=== PATIENT | female | born 1945 | race Hispanic/Latino ===

== ENCOUNTER 2017-07-16 08:44 | Inpatient (IN) | payer OTHER ==
[2017-07-16 09:11] VITALS: BMI 31.1
--- NOTE | 2017-07-16 09:21 | ED PDOC ---
Arrival/HPI - General Chief Complaint: Abdominal Pain Time Seen by Provider: 07/16/17 09:18 Historian: Patient - History of Present Illness Narrative History of Present Illness (Text): 07/16/17 09:21 72 y/o female, pmh and surgical history including appendectomy/cholecystomy/ colitis, nkda, c/o rt. sided abdominal pain with diarrhea x 1 year. Pt. stated that she has rt. sided abdominal pain for 1 week which associated with diarrhea (no previous antibiotic exposure prior to the initial episode), seen at [facility] ER last week which she was discharge home as she had negative finding on the CT abdomen/pelvis as per patient. Pt. follow up with her pcp Dr. Monty Ordoñez on last week wednesday which she's been taking flagyl po for the past 1 week with limited relief, pain and diarrhea still persist which prompted her to come to the ER department. Pt. doesn't recall any fever or chills, no exposure to c.diff, no palpitation, no chest pain, no other medical or psychological complaints. Past Medical History - Provider Review Nursing Documentation Reviewed: Yes - Infectious Disease Hx of Infectious Diseases: None - Past Medical History Past Medical History: No Previous - Cardiac Hx Cardiac Disorders: No Hx [place]: No Hx Hypertension: No Hx Pacemaker: No Other/Comment: H/O CHEST DISCOMFORT, POSSIBLE GI REL., PER PT. STRESS TEST NEGATIVE. - Pulmonary Hx Respiratory Disorders: No Hx Asthma: No Hx Chronic Obstructive Pulmonary Disease (COPD): No Hx Emphysema: No - Neurological Hx Neurological Disorder: No HX Cerebrovascular Accident: No Hx Dementia: No Hx Paralysis: No Hx Seizures: No Hx Transient Ischemic Attacks (TIA): No - HEENT Hx HEENT Disorder: Yes (using reading glasses) - Renal Hx Renal Disorder: No Hx Kidney Stones: Yes - Endocrine/Metabolic Hx Endocrine Disorders: No - Hematological/Oncological Hx Blood Disorders: No Hx Blood Transfusions: No Hx Blood Transfusion Reaction: No Hx Cancer: No - Integumentary Hx Dermatological Disorder: No - Musculoskeletal/Rheumatological Hx Musculoskeletal Disorders: Yes Hx Back Pain: Yes Hx Falls: No Hx Fractures: No - Gastrointestinal Hx Gastrointestinal Disorders: Yes Hx Colitis: Yes Hx Gall Bladder Disease: Yes (gall bladder stones removed) Hx Gastroesophageal Reflux: Yes Other/Comment: RECENT CT SCAN SHOWS MILD SPLENOMEGALY - Psychiatric Hx Psychophysiologic Disorder: Yes Hx Anxiety: Yes Hx Depression: Yes Hx Emotional Abuse: No Hx Physical Abuse: No Hx Substance Use: No - Surgical History Hx Appendectomy: Yes Hx Cholecystectomy: Yes - Anesthesia Hx Anesthesia: Yes Hx Anesthesia Reactions: Yes (VOMITING) Hx Malignant Hyperthermia: No - Suicidal Assessment Feels Threatened In Home Enviroment: No Family/Social History - Physician Review Nursing Documentation Reviewed: Yes Family/Social History: Unknown Family HX Smoking Status: Never Smoked Hx Alcohol Use: No Hx Substance Use: No Hx Substance Use Treatment: No Allergies/Home Meds Allergies/Adverse Reactions: Allergies No Known Allergies Allergy (Verified 07/16/17 09:05) Home Medications: Home Meds Medication Instructions Recorded Confirmed ALPRAZolam HALF TABLET [Xanax] 1 tab PO PRN PRN 03/09/16 08/03/16 Zolpidem [Ambien] 5 mg PO HS 03/09/16 08/03/16 Acetaminophen [Tylenol Extra 2 tab PO Q8 PRN 08/03/16 08/03/16 Strength] Rpejn-Y-Idatncljzvmib [Beano] 2 tab PO DAILY 08/03/16 08/03/16 Bisacodyl [Dulcolax] 5 mg PO HS PRN 08/03/16 08/03/16 Dicyclomine [Bentyl] 10 mg PO Q6 PRN 08/03/16 08/03/16 Review of Systems - Review of Systems Constitutional: absent: Fatigue, Fevers Eyes: absent: Vision Changes ENT: absent: Hearing Changes Respiratory: absent: SOB, Cough Cardiovascular: absent: Chest Pain Gastrointestinal: Abdominal Pain, Diarrhea. absent: Nausea, Vomiting Musculoskeletal: absent: Arthralgias, Back Pain Skin: absent: Rash, Pruritis Neurological: absent: Headache Psychiatric: absent: Anxiety, Depression Physical Exam Vital Signs Reviewed: Yes Vital Signs Temp Pulse Resp BP Pulse Ox 07/16/17 12:50 84 18 145/64 96 07/16/17 11:20 89 18 148/69 96 07/16/17 10:19 92 H 18 154/68 H 96 07/16/17 09:06 98.1 F 97 H 18 154/82 H 99 Temperature: Afebrile Blood Pressure: Normal Pulse: Regular Respiratory Rate: Normal Appearance: Positive for: Uncomfortable Pain Distress: Moderate Mental Status: Positive for: Alert and Oriented X 3 - Systems Exam Head: Present: Atraumatic, Normocephalic Pupils: Present: PERRL Extroacular Muscles: Present: EOMI Conjunctiva: Present: Normal Mouth: Present: Moist Mucous Membranes Neck: Present: Normal Range of Motion Respiratory/Chest: Present: Clear to Auscultation, Good Air Exchange. No: Respiratory Distress, Accessory Muscle Use Cardiovascular: Present: Regular Rate and Rhythm, Normal S1, S2. No: Murmurs Abdomen: Present: Tenderness (+rt. sided abdomen tenderness). No: Distention, Peritoneal Signs, Rebound, Guarding Back: Present: Normal Inspection Upper Extremity: Present: Normal Inspection. No: Cyanosis, Edema Lower Extremity: Present: Normal Inspection. No: Edema Neurological: Present: GCS=15, CN II-XII Intact, Speech Normal Skin: Present: Warm, Dry, Normal Color. No: Rashes Psychiatric: Present: Alert, Oriented x 3, Normal Insight, Normal Concentration Medical Decision Making ED Course and Treatment: 07/16/17 09:42 -labs/ua/C.diff and culture the stool -CT abdomen and pelvis -IVF/pepcid/zofran/morphine -Observe and reassess 07/16/17 13:42 -CT abdomen and pelvis show: Evaluation of the bowel is limited in the absence of oral contrast. Allowing for this, mild mural thickening in the cecum and ascending colon with mild pericolonic inflammatory changes may represent nonspecific infectious/ inflammatory colitis. Additionally fat deposit vila in the transverse and left hemicolon wall is most compatible with chronic inflammatory disease. -Labs show no acute findings except bun 23 (IVF infusing) -UA is pending -IV cipro and flagyl ordered, will need admission for inpatient management. 07/16/17 13:50 -I spoke to the pt.'s pmd Dr. Monty Ordoñez, discussed about the case/labs/ radiology result, agreed to admit the patient with Dr. Austin (ID) and Dr. Reinoso (GI) on routine consult consult, NPO for the patient at this time. -I spoke to Dr. Stark about the case, discussed about the case/labs/radiology result, agreed on the treatment and inpatient admission plan. He will put in the admission. -Pt. and the family agreed to be admitted - Lab Interpretations Lab Results: 07/16/17 09:50 07/16/17 09:50 Lab Results 07/16/17 09:50: WBC 4.0 L D, RBC 4.19, Hgb 12.2, Hct 37.7, MCV 90.0, MCH 29.1, MCHC 32.4, RDW 14.4, Plt Count 165, MPV 10.1, Gran % 60.6, Lymph % (Auto) 28.5, Navarro % (Auto) 8.1 H, Eos % (Auto) 2.5, Baso % (Auto) 0.3, Gran # 2.41, Lymph # ( Auto) 1.1 L, Navarro # (Auto) 0.3, Eos # (Auto) 0.1, Baso # (Auto) 0.01 07/16/17 09:50: Sodium 147, Potassium 3.6, Chloride 110 H, Carbon Dioxide 26, Anion Gap 15, BUN 23 H, Creatinine 0.9, Est GFR ( Amer) > 60, Est GFR ( Non-Af Amer) > 60, Random Glucose 156 H, Calcium 9.1, Magnesium 2.1, Total Bilirubin 0.2, AST 35, ALT 36, Alkaline Phosphatase 97, Total Protein 6.8, Albumin 4.1, Globulin 2.6, Albumin/Globulin Ratio 1.6, Lipase 82 I have reviewed the lab results: Yes - RAD Interpretation Radiology Orders: 07/16/17 09:35 ABD & PELVIS IV CONTRAST ONLY [CT] Stat LOWER THORAX: There is linear scarring in the lingula. The lung bases are clear. LIVER: Normal in size with homogeneous enhancement. GALLBLADDER AND BILE DUCTS: Surgically absent. Mild dilatation of the intrahepatic bile ducts and common bile duct is in keeping with postcholecystectomy status. PANCREAS: Normal in size with homogeneous enhancement. No gross lesion or ductal dilatation. SPLEEN: Normal in size and appearance. ADRENALS: No discrete nodule. KIDNEYS AND URETERS: Both kidneys are normal in size and there is homogeneous enhancement without hydronephrosis. There is a 3.0 cm simple cyst in the lower pole the right kidney. There is an extrarenal pelvis on the left. VASCULATURE: Early atherosclerotic aortoiliac calcifications. No aortic aneurysm. BOWEL: The small bowel loops are normal in caliber. There is mild circumferential mural thickening in the cecum and proximal ascending colon with mild pericolonic inflammatory changes. There is fat deposit vila in transverse and left hemicolon. There is moderate amount of stool in the colon. No bowel dilatation or obstruction APPENDIX: Surgically absent. PERITONEUM: No free fluid. No free air. LYMPH NODES: No enlarged lymph nodes. BLADDER: Normal in appearance. REPRODUCTIVE: The uterus is normal in size. BONES: No acute fracture. Within normal limits for the patient's age. OTHER FINDINGS: There is a small sliding hiatal hernia. IMPRESSION: 1. Evaluation of the bowel is limited in the absence of oral contrast. Allowing for this, mild mural thickening in the cecum and ascending colon with mild pericolonic inflammatory changes may represent nonspecific infectious/ inflammatory colitis. Additionally fat deposit vila in the transverse and left hemicolon wall is most compatible with chronic inflammatory disease. 2. Additional chronic findings as described above. Energy Management Specialist: Radiologist - Medication Orders Current Medication Orders: Sodium Chloride (Sodium Chloride 0.9%) 1,000 mls @ 100 mls/hr IV .Q10H HALLEY Last Admin: 07/16/17 09:58 Dose: 100 mls/hr eMAR Start Stop Document 07/16/17 09:58 GMD (Rec: 07/16/17 09:58 GMD [id number]) Intravenous Solution Start Date 07/16/17 Start Time 09:58 Ciprofloxacin (Cipro 400mg/200ml Dsw) 400 mg in 200 mls @ 133.3 mls/hr IVPB STAT STA PRN Reason: Protocol Stop: 07/16/17 15:15 Metronidazole (Flagyl) 500 mg in 100 mls @ 100 mls/hr IVPB STAT STA PRN Reason: Protocol Stop: 07/16/17 14:44 Discontinued Medications Famotidine (Pepcid) 20 mg IVP STAT STA Stop: 07/16/17 09:44 Last Admin: 07/16/17 09:59 Dose: 20 mg IVP Administration Document 07/16/17 09:59 GMD (Rec: 07/16/17 09:59 GMD [id number]) Charges for Administration # of IVP Administrations 1 Morphine Sulfate (Morphine) 4 mg IVP STAT STA Stop: 07/16/17 10:07 Last Admin: 07/16/17 10:11 Dose: 4 mg MAR Pain Assessment Document 07/16/17 10:11 GMD (Rec: 07/16/17 10:12 GMD [id number]) Pain Reassessment Is this a pain reassessment? No Presence of Pain Presence of Pain Yes IVP Administration Document 07/16/17 10:11 GMD (Rec: 07/16/17 10:12 GMD [id number]) Charges for Administration # of IVP Administrations 1 Ondansetron HCl (Zofran Inj) 4 mg IVP STAT STA Stop: 07/16/17 09:36 Last Admin: 07/16/17 09:59 Dose: 4 mg IVP Administration Document 07/16/17 09:59 GMD (Rec: 07/16/17 09:59 GMD [id number]) Charges for Administration # of IVP Administrations 1 - PA / CHIEF SOLUTION ARCHITECT / Resident Statement / has reviewed & agrees with the documentation as recorded. Disposition/Present on Arrival - Present on Arrival Any Indicators Present on Arrival: No History of DVT/PE: No History of Uncontrolled Diabetes: No Urinary Catheter: No History of Decub. Ulcer: No History Surgical Site Infection Following: None - Disposition Have Diagnosis and Disposition been Completed?: Yes Diagnosis: Colitis, Failure of outpatient treatment Disposition: HOSPITALIZED Disposition Time: 09:44 Patient Plan: Admission Patient Problems: Current Active Problems Problem Status Onset Colitis Acute Failure of outpatient treatment Acute Condition: STABLE Referrals: Monty Ordoñez DO [Primary Care Provider] - Follow up with primary Forms: [employer] (Slovenian)
[2017-07-16] MEDS ORDERED: Morphine 5 MG/ML SYRINGE IVP STA (09:35)
[2017-07-16] MEDS ORDERED: Sodium Chloride 0.9% 1,000 ML IV SCH (09:45)
[2017-07-16 10:02] LABS: BASO # 0.01 K/mm3 (0.0-2.0); BASO % 0.3 % (0.0-3.0); EOS # 0.1 (0.0-0.7); EOS % 2.5 % (1.5-5.0); GRAN # 2.41 (1.4-6.5); GRAN % 60.6 % (50.0-68.0); HEMOGLOBIN 12.2 g/dL (12.0-16.0); LYMPH # 1.1 (1.2-3.4); LYMPH % 28.5 % (22.0-35.0); MEAN CORPUSCULAR HEMOGLOBIN 29.1 pg (25.0-35.0); MEAN CORPUSCULAR HGB CONC 32.4 g/dl (31.0-37.0); MEAN PLATELET VOLUME 10.1 fl (7.0-11.0); MONO # 0.3 (0.1-0.6); MONO % 8.1 % (1.0-6.0); RBC 4.19 10^6/uL (3.5-6.1); RED CELL DISTRIBUTION WIDTH 14.4 % (11.5-14.5)
[2017-07-16] MEDS ORDERED: Morphine 4 mg/ml ISec IVP STA (10:06)
[2017-07-16] MEDS ORDERED: Iohexol 350 MG/100 ML VIAL ONE (10:44)
[2017-07-16 11:30] LABS: ALB/GLOB RATIO 1.6 (1.1-1.8); ALBUMIN 4.1 g/dL (3.0-4.8); ALT/SGPT 36 U/L (7-56); AST/SGOT 35 U/L (14-36); BLOOD UREA NITROGEN 23 mg/dL (7-21); CALCIUM 9.1 mg/dL (8.4-10.5); GFR AFRICAN-AMERICAN > 60; GFR NON-AFRICAN AMERICAN > 60; LIPASE 82 U/L (23-300)
--- NOTE | 2017-07-16 13:37 | CT ---
PROCEDURE: CT Abdomen and Pelvis with contrast HISTORY: Rt. abd pain,celia/append 7 years ago, c/o diarrhe COMPARISON: 07/17/2016. TECHNIQUE: Contrast dose: 100 mL Omnipaque 350 Radiation dose: Total exam DLP = mGy-cm. This CT exam was performed using one or more of the following dose reduction techniques: Automated exposure control, adjustment of the mA and/or kV according to patient size, and/or use of iterative reconstruction technique. FINDINGS: LOWER THORAX: There is linear scarring in the lingula. The lung bases are clear. LIVER: Normal in size with homogeneous enhancement. GALLBLADDER AND BILE DUCTS: Surgically absent. Mild dilatation of the intrahepatic bile ducts and common bile duct is in keeping with postcholecystectomy status. PANCREAS: Normal in size with homogeneous enhancement. No gross lesion or ductal dilatation. SPLEEN: Normal in size and appearance. ADRENALS: No discrete nodule. KIDNEYS AND URETERS: Both kidneys are normal in size and there is homogeneous enhancement without hydronephrosis. There is a 3.0 cm simple cyst in the lower pole the right kidney. There is an extrarenal pelvis on the left. VASCULATURE: Early atherosclerotic aortoiliac calcifications. No aortic aneurysm. BOWEL: The small bowel loops are normal in caliber. There is mild circumferential mural thickening in the cecum and proximal ascending colon with mild pericolonic inflammatory changes. There is fat deposit vila in transverse and left hemicolon. There is moderate amount of stool in the colon. No bowel dilatation or obstruction APPENDIX: Surgically absent. PERITONEUM: No free fluid. No free air. LYMPH NODES: No enlarged lymph nodes. BLADDER: Normal in appearance. REPRODUCTIVE: The uterus is normal in size. BONES: No acute fracture. Within normal limits for the patient's age. OTHER FINDINGS: There is a small sliding hiatal hernia. IMPRESSION: 1. Evaluation of the bowel is limited in the absence of oral contrast. Allowing for this, mild mural thickening in the cecum and ascending colon with mild pericolonic inflammatory changes may represent nonspecific infectious/ inflammatory colitis. Additionally fat deposit vila in the transverse and left hemicolon wall is most compatible with chronic inflammatory disease. 2. Additional chronic findings as described above.
[2017-07-16] MEDS ORDERED: Ciprofloxacin 400mg/200ml D5W 400 MG/200 ML BAG IVPB STA (13:45)
[2017-07-16] MEDS ORDERED: metroNIDAZOLE IV 500 mg/100 ml 500 MG/100 ML BAG IVPB STA (13:45)
[2017-07-16 14:22] LABS: URINE BILIRUBIN NEGATIVE (NEGATIVE); URINE BLOOD NEGATIVE (NEGATIVE); URINE GLUCOSE (UA) NEGATIVE (NEGATIVE); URINE LEUKOCYTE ESTERASE TRACE Leu/uL (NEGATIVE); URINE PROTEIN NEGATIVE mg/dL (<30 mg/dL); URINE UROBILINOGEN 0.2 E.U./dL (<1 E.U./dL)
[2017-07-16 14:35] LABS: URINE APPEARANCE CLEAR (CLEAR); URINE COLOR YELLOW (YELLOW)
[2017-07-16 14:40] LABS: URINE BACTERIA FEW (NEG); URINE RBC 0 - 2 /hpf (0-2)
[2017-07-16] MEDS ORDERED: Morphine 2 mg/ml ISec IVP PRN (16:50)
[2017-07-16] MEDS ORDERED: Morphine 4 mg/ml ISec IVP PRN (16:57)
[2017-07-16] MEDS ORDERED: Ciprofloxacin 400mg/200ml D5W 400 MG/200 ML BAG IVPB SCH (18:00)
[2017-07-16] MEDS: Sodium Chloride 0.9% 1,000 ML IV SCH (18:52)
[2017-07-16] MEDS: Insulin Reg-MEDIUM-Coverage SC SCH (21:26)
[2017-07-16] MEDS: metroNIDAZOLE IV 500 mg/100 ml 500 MG/100 ML BAG IVPB SCH (21:26)
[2017-07-16] MEDS: Vancomycin 25 MG/ML PO SCH (23:05)
--- NOTE | 2017-07-16 23:44 | HP ---
HISTORY OF PRESENT ILLNESS: I know Rox quite well from the office. She has been getting antibiotics for a colitis-type picture and she has been getting worse with diarrhea and abdominal pain. It got so bad, she came back to the emergency room. She is a 72-year-old female with a past medical history of colitis. She has had an appendectomy, cholecystectomy in the past. No known drug allergies. She has right-sided abdominal pain with diarrhea, on and off for a year. She has been treated on and off for colitis for a very long time. This past week was very bad with diarrhea. She was on antibiotics with Cipro and Flagyl from [facility], [place]. She had a CT scan now, which showing colitis, inflammatory bowel disease. She has had history of chest discomfort in the past with a negative stress test. She wears reading glasses. She has had colitis in the past, gallstones removed. She has had a splenomegaly with gastroesophageal reflux disease, anxiety, depression history, appendectomy, cholecystectomy. She has had some vomiting. FAMILY HISTORY: Unknown family history. SOCIAL HISTORY: Never smoked. No alcohol. No drugs. ALLERGIES: NO KNOWN DRUG ALLERGIES. MEDICATIONS: She has been on Xanax, Ambien, Tylenol extra strength, Beano, Colace, Cipro, Flagyl, Bentyl. REVIEW OF SYSTEMS: No acute vision or hearing changes. No sore throat. No shortness of breath or cough. No chest pain or palpitations. She is having abdominal pain, diarrhea, little nauseous. No vomiting. No back pain. No rashes. No skin issues. No anxiety or depression. No tremors. No headaches. PHYSICAL EXAMINATION: VITAL SIGNS: 98.1 temp, 97 pulse and 18 respiratory rate, 154/82 blood pressure, 99% O2 sat on room air. GENERAL: She is lying in bed. She is alert. She is uncomfortable. She is having right-sided abdominal pain, a little bit distress. She is alert and oriented x3. HEENT: Head is atraumatic, normocephalic. Extraocular muscles are intact. Pupils equal, reactive to light. Throat is moist. NECK: Supple. HEART: Regular rate. Normal S1 and S2. LUNGS: Decreased breath sounds, but clear to auscultation. ABDOMEN: She is having right-sided abdominal tenderness. No guarding, no rebound, but is definitely sore, mildly distended. Decreased bowel sounds. EXTREMITIES: No edema of the extremities. GCS is 15. Cranial nerves II through XII grossly intact. SKIN: Warm and dry. No apparent rashes or ulcers. Alert and oriented x3. Thyroid midline. No palpable appreciable lymphadenopathy. LABORATORY DATA: CAT scan shows infectious inflammatory colitis. She had blood tests, 4 white count, 12.2 hemoglobin, 37.7 hematocrit with a 155 platelets. 147 sodium, potassium 3.6, BUN is 23, creatinine 0.9, GFR is greater than 60, sugar is 156, calcium is 9.1, magnesium 2.1, total bili is 0.2, AST is 35, ALT is 36, alk phos 97, total protein 6.8, albumin is 4.1, lipase is 82. Urine is trace. IMPRESSION: She is going to have IV Flagyl, IV Cipro, IV fluids. She is going to have Morphine for the pain, Protonix IV, Xanax. Consults with Infectious Disease and Gastroenterology. We will check her labs tomorrow. She is here for colitis, persistent, failed outpatient. Monty Ordoñez DO
[2017-07-17] MEDS: metroNIDAZOLE IV 500 mg/100 ml 500 MG/100 ML BAG IVPB SCH ×3 (05:40→21:12)
[2017-07-17 06:53] LABS: BASO # 0.02 K/mm3 (0.0-2.0); BASO % 0.5 % (0.0-3.0); EOS # 0.1 (0.0-0.7); EOS % 3.6 % (1.5-5.0); GRAN # 2.02 (1.4-6.5); GRAN % 51.3 % (50.0-68.0); LYMPH # 1.4 (1.2-3.4); MEAN CELL VOLUME 90.9 fl (80.0-105.0); MEAN CORPUSCULAR HEMOGLOBIN 28.6 pg (25.0-35.0); MEAN CORPUSCULAR HGB CONC 31.4 g/dl (31.0-37.0); MEAN PLATELET VOLUME 10.7 fl (7.0-11.0); MONO # 0.3 (0.1-0.6); MONO % 8.6 % (1.0-6.0); RBC 3.85 10^6/uL (3.5-6.1); RED CELL DISTRIBUTION WIDTH 14.6 % (11.5-14.5); WHITE BLOOD COUNT 3.9 10^3/ul (4.5-11.0)
[2017-07-17 07:20] LABS: ALB/GLOB RATIO 1.5 (1.1-1.8); ALBUMIN 3.5 g/dL (3.0-4.8); ALT/SGPT 42 U/L (7-56); AST/SGOT 37 U/L (14-36); BLOOD UREA NITROGEN 17 mg/dL (7-21); CALCIUM 8.3 mg/dL (8.4-10.5); GFR AFRICAN-AMERICAN > 60; GFR NON-AFRICAN AMERICAN > 60
[2017-07-17] MEDS: Insulin Reg-MEDIUM-Coverage SC SCH ×4 (07:37→22:00)
--- NOTE | 2017-07-17 08:53 | PN ---
DATE: SUBJECTIVE: I see her resting comfortably in bed. She is still having a right-sided pain. It is not as bad as it was when she came in. The antibiotics I think are working and the IV fluids. MEDICATIONS: She is on Ambien, Bentyl IV, Flagyl, insulin coverage, morphine for the pain. She is off the Pepcid. She is on Protonix, vancomycin IV and Zofran as needed. PHYSICAL EXAMINATION: VITAL SIGNS: She has a 97.5 temp, 78 pulse, 130/64 blood pressure, 19 respiratory rate, 95% O2 sat on room air. HEENT: Head is atraumatic, normocephalic. HEART: Regular rate. LUNGS: Decreased breath sounds, but clear. ABDOMEN: Soft. Positive bowel sounds. The right side is powerhouse tender, but not as bad. No guarding. No rebound. EXTREMITIES: Have no edema. LABORATORY DATA: She has a 3.9 white count, 11 hemoglobin, 162 platelets. 144 sodium, potassium 3.6, BUN 17, creatinine 0.9, GFR is greater than 60, sugar is 92, calcium is 8.3, total bili is 0.3, AST is 37, ALT is 42, alk phos is 94. ASSESSMENT AND PLAN: Waiting for Gastroenterology to see her and Infectious Disease. I do think this is the first day she is starting to feel a little bit better, may be 20%. We will continue aggressive treatment and care. May be get out of bed to chair today. Physical therapy and IV antibiotics for colitis. Rox Ruff who failed outpatient treatment. Monty Ordoñez DO
[2017-07-17] MEDS: Vancomycin 25 MG/ML PO SCH ×4 (09:15→21:12)
[2017-07-17] MEDS ORDERED: Ciprofloxacin 400mg/200ml D5W 400 MG/200 ML BAG IVPB SCH (10:00)
--- NOTE | 2017-07-17 11:23 | CP.PCM.CON ---
<Red Hein - Last Filed: 07/17/17 11:44> History of Present Illness - History of Present Illness History of Present Illness: PGY4 GI Follow-Up Rox Alvarez is a 72F w/ a hx of appendectomy, cholecystomy, colitis who presents to the ER for acute on chronic right sided abd pain and diarrhea. Pt. stated that she has worsening rt. sided abdominal pain for 1 week which associated with diarrhea. She was recently seen at [facility] ER last 10 days ago at which time she was discharge with cipro and flagyl. As per pt, her CT findings were neg. Pt follow up with her pcp Dr. Monty Ordoñez on last week wednesday which she's been taking flagyl po for the past 1 week with limited relief , pain and diarrhea still persist which prompted her to come to the ER department. Denies any fever, chills or diaphoresis. She has both an EGD and colonoscopy 1 year ago, which did not reveal any significant pathology. PMHx: Anxiety, chronic abd pain, DM PSHx: Lap Pia, Appendectomy Social Hx: Denies etoh use, tobacco use, and illicit drug use Family Hx: Reviewed, no GI malign or diseases Endo hx: EGD & colonoscopy 07/2016 ROS: 12 point ROS conducted, neg other than above Past Patient History - Infectious Disease Hx of Infectious Diseases: None - Past Medical History & Family History Past Medical History?: Yes - Past Social History Smoking Status: Never Smoked - CARDIAC Hx Cardiac Disorders: No Hx Hypertension: No Hx Pacemaker: No Other/Comment: H/O CHEST DISCOMFORT, POSSIBLE GI REL., PER PT. STRESS TEST NEGATIVE. - PULMONARY Hx Respiratory Disorders: No Hx Asthma: No Hx Chronic Obstructive Pulmonary Disease (COPD): No Hx Emphysema: No - NEUROLOGICAL Hx Neurological Disorder: No HX Cerebrovascular Accident: No Hx Dementia: No Hx Seizures: No Hx Transient Ischemic Attacks (TIA): No - HEENT Hx HEENT Problems: Yes (using reading glasses) - RENAL Hx Chronic Kidney Disease: No Hx Kidney Stones: Yes - ENDOCRINE/METABOLIC Hx Endocrine Disorders: No - HEMATOLOGICAL/ONCOLOGICAL Hx Blood Disorders: No Hx Cancer: No - INTEGUMENTARY Hx Dermatological Problems: No - MUSCULOSKELETAL/RHEUMATOLOGICAL Hx Musculoskeletal Disorders: Yes Hx Back Pain: Yes Hx Falls: No Hx Fractures: No - GASTROINTESTINAL Hx Gastrointestinal Disorders: Yes Hx Gall Bladder Disease: Yes (gall bladder stones removed) Hx Gastroesophageal Reflux: Yes Other/Comment: RECENT CT SCAN SHOWS MILD SPLENOMEGALY - PSYCHIATRIC Hx Psychophysiologic Disorder: Yes Hx Anxiety: Yes Hx Depression: Yes Hx Emotional Abuse: No Hx Physical Abuse: No - SURGICAL HISTORY Hx Appendectomy: Yes Hx Cholecystectomy: Yes - ANESTHESIA Hx Anesthesia: Yes Hx Anesthesia Reactions: Yes (VOMITING) Hx Malignant Hyperthermia: No Meds Allergies/Adverse Reactions: Allergies Allergy/AdvReac Type Severity Reaction Status Date / Time No Known Allergies Allergy Verified 07/16/17 09:05 - Medications Medications: Current Medications Alprazolam (Xanax) 0.25 mg PO BID PRN; Protocol PRN Reason: Anxiety Stop: 07/23/17 18:01 Last Admin: 07/16/17 18:52 Dose: 0.25 mg Dicyclomine HCl (Bentyl) 10 mg PO Q6H PRN PRN Reason: Diarrhea Sodium Chloride (Sodium Chloride 0.9%) 1,000 mls @ 40 mls/hr IV .Q24H [facility] Last Admin: 07/16/17 18:52 Dose: 40 mls/hr Metronidazole (Flagyl) 500 mg in 100 mls @ 100 mls/hr IVPB Q8 HALLEY PRN Reason: Protocol Last Admin: 07/17/17 05:40 Dose: 100 mls/hr Insulin Human Regular (Humulin R Med) 0 units SC ACHS HALLEY PRN Reason: Protocol Last Admin: 07/17/17 07:37 Dose: Not Given Morphine Sulfate (Morphine) 1 mg IVP Q3 PRN PRN Reason: SEVERE PAIN [8-10] Ondansetron HCl (Zofran Inj) 4 mg IVP Q6H PRN PRN Reason: Nausea/Vomiting Pantoprazole Sodium (Protonix Inj) 40 mg IVP DAILY [facility] Last Admin: 07/17/17 09:23 Dose: 40 mg Vancomycin HCl (Vancocin 25 Mg/Ml (Oral Use)) 125 mg PO QID HALLEY PRN Reason: Protocol Last Admin: 07/17/17 09:15 Dose: 125 mg Zolpidem Tartrate (Ambien) 5 mg PO HS PRN; Protocol PRN Reason: Insomnia Last Admin: 07/16/17 23:09 Dose: 5 mg Physical Exam - Constitutional Appears: Well, No Acute Distress - Head Exam Head Exam: ATRAUMATIC, NORMOCEPHALIC - Eye Exam Eye Exam: Normal appearance. absent: Scleral icterus - ENT Exam ENT Exam: Mucous Membranes Moist, Normal Exam - Neck Exam Neck exam: Positive for: Normal Inspection - Respiratory Exam Respiratory Exam: Clear to Auscultation Bilateral, NORMAL BREATHING PATTERN. absent: Rales, Rhonchi, Wheezes, Respiratory Distress - Cardiovascular Exam Cardiovascular Exam: REGULAR RHYTHM, +S1, +S2 - GI/Abdominal Exam GI & Abdominal Exam: Normal Bowel Sounds, Soft, Tenderness (RUQ and RLQ). absent: Distended, Firm, Guarding, Hernia, Organomegaly, Rebound, Rigid - Extremities Exam Extremities exam: Negative for: joint swelling, pedal edema - Neurological Exam Neurological exam: Alert, Oriented x3 - Psychiatric Exam Psychiatric exam: Normal Affect, Normal Mood - Skin Skin Exam: Dry, Intact, Normal Color, Warm Results - Vital Signs Recent Vital Signs: Last Vital Signs Temp 97.5 F L 07/17/17 07:47 Pulse 73 07/17/17 07:47 Resp 19 07/17/17 07:47 BP 130/64 07/17/17 07:47 Pulse Ox 95 07/17/17 07:47 - Labs Result Diagrams: 07/17/17 06:00 07/17/17 06:00 Labs: Laboratory Results - last 24 hr 07/16/17 07/16/17 07/16/17 14:10 17:38 21:12 WBC RBC Hgb Hct MCV MCH MCHC RDW Plt Count MPV Gran % Lymph % (Auto) [place] % (Auto) Eos % (Auto) Baso % (Auto) Gran # Lymph # (Auto) [place] # (Auto) Eos # (Auto) Baso # (Auto) Sodium Potassium Chloride Carbon Dioxide Anion Gap BUN Creatinine Est GFR ( Amer) Est GFR (Non-Af Amer) POC Glucose (mg/dL) 99 80 Random Glucose Calcium Total Bilirubin AST ALT Alkaline Phosphatase Total Protein Albumin Globulin Albumin/Globulin Ratio Urine Color Yellow Urine Appearance Clear Urine pH 7.0 Ur Specific [place] 1.010 Urine Protein Negative Urine Glucose (UA) Negative Urine Ketones Negative Urine Blood Negative Urine Nitrate Negative Urine Bilirubin Negative Urine Urobilinogen 0.2 Ur Leukocyte Esterase Trace H Urine RBC 0 - 2 Urine WBC 2 - 5 Ur Epithelial Cells 3 - 4 Urine Bacteria Few 07/17/17 07/17/17 07/17/17 06:00 06:00 07:19 WBC 3.9 L RBC 3.85 Hgb 11.0 L Hct 35.0 L MCV 90.9 MCH 28.6 MCHC 31.4 RDW 14.6 H Plt Count 162 MPV 10.7 Gran % 51.3 Lymph % (Auto) 36.0 H [place] % (Auto) 8.6 H Eos % (Auto) 3.6 Baso % (Auto) 0.5 Gran # 2.02 Lymph # (Auto) 1.4 [place] # (Auto) 0.3 Eos # (Auto) 0.1 Baso # (Auto) 0.02 Sodium 144 Potassium 3.6 Chloride 109 H Carbon Dioxide 26 Anion Gap 13 BUN 17 Creatinine 0.9 Est GFR ( Amer) > 60 Est GFR (Non-Af Amer) > 60 POC Glucose (mg/dL) 95 Random Glucose 92 Calcium 8.3 L Total Bilirubin 0.3 AST 37 H ALT 42 Alkaline Phosphatase 94 Total Protein 5.8 Albumin 3.5 Globulin 2.4 Albumin/Globulin Ratio 1.5 Urine Color Urine Appearance Urine pH Ur Specific [place] Urine Protein Urine Glucose (UA) Urine Ketones Urine Blood Urine Nitrate Urine Bilirubin Urine Urobilinogen Ur Leukocyte Esterase Urine RBC Urine WBC Ur Epithelial Cells Urine Bacteria 07/17/17 11:10 WBC RBC Hgb Hct MCV MCH MCHC RDW Plt Count MPV Gran % Lymph % (Auto) [place] % (Auto) Eos % (Auto) Baso % (Auto) Gran # Lymph # (Auto) [place] # (Auto) Eos # (Auto) Baso # (Auto) Sodium Potassium Chloride Carbon Dioxide Anion Gap BUN Creatinine Est GFR ( Amer) Est GFR (Non-Af Amer) POC Glucose (mg/dL) 119 H Random Glucose Calcium Total Bilirubin AST ALT Alkaline Phosphatase Total Protein Albumin Globulin Albumin/Globulin Ratio Urine Color Urine Appearance Urine pH Ur Specific [place] Urine Protein Urine Glucose (UA) Urine Ketones Urine Blood Urine Nitrate Urine Bilirubin Urine Urobilinogen Ur Leukocyte Esterase Urine RBC Urine WBC Ur Epithelial Cells Urine Bacteria Assessment & Plan - Assessment and Plan (Free Text) Assessment: Rox Ruff is a 72F w/ hx of chronic abd pain and diarrhea who presents to the Er with complaints of abd pain and diarrhea Acute on chronic abd pain; etiology unknown Acute on chronic diarrhea; r/o infectous etiology: DDx: microscoptic, ischemic, and IBD Plan: -send stool infectous w/u including culture and O&P -send nancy protectin -advance diet as tolerated -c.diff -can continue cipro and flagyl -pain management as per PCP -will also send stool electrolytes D/w Dr. Vazquez <Kyle Vazquez - Last Filed: 07/17/17 16:38> Meds - Medications Medications: Current Medications Alprazolam (Xanax) 0.25 mg PO BID PRN; Protocol PRN Reason: Anxiety Stop: 07/23/17 18:01 Last Admin: 07/16/17 18:52 Dose: 0.25 mg Dicyclomine HCl (Bentyl) 10 mg PO Q6H PRN PRN Reason: Diarrhea Sodium Chloride (Sodium Chloride 0.9%) 1,000 mls @ 40 mls/hr IV .Q24H [facility] Last Admin: 07/16/17 18:52 Dose: 40 mls/hr Metronidazole (Flagyl) 500 mg in 100 mls @ 100 mls/hr IVPB Q8 [place] PRN Reason: Protocol Last Admin: 07/17/17 14:18 Dose: 100 mls/hr Insulin Human Regular (Humulin R Med) 0 units SC ACHS [place] PRN Reason: Protocol Last Admin: 07/17/17 12:12 Dose: Not Given Morphine Sulfate (Morphine) 1 mg IVP Q3 PRN PRN Reason: SEVERE PAIN [8-10] Last Admin: 07/17/17 14:21 Dose: 1 mg Ondansetron HCl (Zofran Inj) 4 mg IVP Q6H PRN PRN Reason: Nausea/Vomiting Pantoprazole Sodium (Protonix Inj) 40 mg IVP DAILY [facility] Last Admin: 07/17/17 09:23 Dose: 40 mg Vancomycin HCl (Vancocin 25 Mg/Ml (Oral Use)) 125 mg PO QID [place] PRN Reason: Protocol Last Admin: 07/17/17 14:26 Dose: 125 mg Zolpidem Tartrate (Ambien) 5 mg PO HS PRN; Protocol PRN Reason: Insomnia Last Admin: 07/16/17 23:09 Dose: 5 mg Results - Vital Signs Recent Vital Signs: Last Vital Signs Temp 97.5 F L 07/17/17 07:47 Pulse 73 07/17/17 07:47 Resp 19 07/17/17 07:47 BP 130/64 04/21/18 07:47 Pulse Ox 95 07/17/17 07:47 - Labs Result Diagrams: 07/17/17 06:00 07/17/17 06:00 Labs: Laboratory Results - last 24 hr 07/16/17 07/16/17 07/17/17 17:38 21:12 06:00 WBC 3.9 L RBC 3.85 Hgb 11.0 L Hct 35.0 L MCV 90.9 MCH 28.6 MCHC 31.4 RDW 14.6 H Plt Count 162 MPV 10.7 Gran % 51.3 Lymph % (Auto) 36.0 H [place] % (Auto) 8.6 H Eos % (Auto) 3.6 Baso % (Auto) 0.5 Gran # 2.02 Lymph # (Auto) 1.4 [place] # (Auto) 0.3 Eos # (Auto) 0.1 Baso # (Auto) 0.02 Sodium Potassium Chloride Carbon Dioxide Anion Gap BUN Creatinine Est GFR ( Amer) Est GFR (Non-Af Amer) POC Glucose (mg/dL) 99 80 Random Glucose Calcium Total Bilirubin AST ALT Alkaline Phosphatase Total Protein Albumin Globulin Albumin/Globulin Ratio 07/17/17 07/17/17 07/17/17 06:00 07:19 11:10 WBC RBC Hgb Hct MCV MCH MCHC RDW Plt Count MPV Gran % Lymph % (Auto) [place] % (Auto) Eos % (Auto) Baso % (Auto) Gran # Lymph # (Auto) [place] # (Auto) Eos # (Auto) Baso # (Auto) Sodium 144 Potassium 3.6 Chloride 109 H Carbon Dioxide 26 Anion Gap 13 BUN 17 Creatinine 0.9 Est GFR ( Amer) > 60 Est GFR (Non-Af Amer) > 60 POC Glucose (mg/dL) 95 119 H Random Glucose 92 Calcium 8.3 L Total Bilirubin 0.3 AST 37 H ALT 42 Alkaline Phosphatase 94 Total Protein 5.8 Albumin 3.5 Globulin 2.4 Albumin/Globulin Ratio 1.5 07/17/17 16:06 WBC RBC Hgb Hct MCV MCH MCHC RDW Plt Count MPV Gran % Lymph % (Auto) [place] % (Auto) Eos % (Auto) Baso % (Auto) Gran # Lymph # (Auto) [place] # (Auto) Eos # (Auto) Baso # (Auto) Sodium Potassium Chloride Carbon Dioxide Anion Gap BUN Creatinine Est GFR ( Amer) Est GFR (Non-Af Amer) POC Glucose (mg/dL) 77 Random Glucose Calcium Total Bilirubin AST ALT Alkaline Phosphatase Total Protein Albumin Globulin Albumin/Globulin Ratio Attending/Attestation - Attestation I have personally seen and examined this patient.: Yes I have fully participated in the care of the patient.: Yes I have reviewed all pertinent clinical information: Yes Notes (Text): 07/17/17 16:37 72 year old female with h/o colonic surgery c/o abdominal pain and diarrhea. Poor historian. EGD/colon last year unremarkable, though no colonic biopsies. Recommend stool studies for infectious casues of diarrhea. Check calprotectin to eval for IBD. Advance diet as tolerated. Immodium as needed for diarrhea.
[2017-07-17] MEDS: Sodium Chloride 0.9% 1,000 ML IV SCH (21:15)
--- NOTE | 2017-07-17 23:19 | CON ---
DATE: 07/17/2017 LOCATION: The patient is in room 367, bed 2. The patient was seen early this morning. CHIEF COMPLAINT: Diarrhea and abdominal pain x1 day. HISTORY OF PRESENT ILLNESS: This is a 72-year-old female with history of colitis, anxiety, depression, history of E. coli urinary tract infection on 05/12/2016, which was pansensitive E. coli at that time, who was admitted now with abdominal pain and loose stools and 1 week duration. No fevers. No chills. No nausea. No vomiting. No chest pain. REVIEW OF SYSTEMS: Twelve-point review of systems is performed. PAST MEDICAL HISTORY: Significant for colitis, anxiety, depression, pansensitive E. coli urinary tract infection. PAST SURGICAL HISTORY: Significant for an appendectomy, cholecystectomy. MEDICATIONS: Ambien and Xanax. ALLERGIES: THE PATIENT HAS KNOWN ALLERGIES. PHYSICAL EXAMINATION: VITAL SIGNS: Temperature is 97, blood pressure is 130/60, respiratory rate of 20, heart rate of 97. HEENT: Examination of HEENT is unremarkable. NECK: Supple. LUNGS: Have decreased breath sounds. HEART: Normal S1 and S2. ABDOMEN: Soft, nontender. LABORATORY DATA: Laboratory examination reveals a white count of 4, today is 3.9; hemoglobin of 12; platelets of 165. Chemistries reveals a BUN of 17, creatinine of 0.9. Urinalysis is noted. Microbiology is noted. Dr. Vazquez's note is reviewed. ASSESSMENT AND PLAN: A 72-year-old female with history of colitis, history of anxiety, depression, Escherichia coli urinary tract infection in 04/2016, now presenting with heart rate of 97, white count was 3.9, abdominal cramp and diarrhea. The CAT scan of the abdomen and pelvis which shows colitis. #1 is sepsis with colitis and must rule out pseudomembranous colitis. The patient was started on Flagyl and on vancomycin. The patient has received IV Cipro in the emergency room. The patient is not toxic. We will check on the stool for Clostridium difficile, blood cultures and stool cultures and urine cultures and we will make further recommendations upon availability of initial results. We will follow closely with you. Cristobal Austin MD
[2017-07-18] MEDS ORDERED: DiphenhydrAMINE 50 mg/ml Inj IVP STA (06:07)
--- NOTE | 2017-07-18 06:08 | CP.PCM.PN ---
Subjective - Date & Time of Evaluation Date of Evaluation: 07/18/17 Time of Evaluation: 05:51 - Subjective Subjective: Patient was seen at bedside. Woke up with rash. She received flagyl-6 doses IV ,Vanco -5 doses oraliy. 97% pulse ox. ,afebrile. No sob,no wheezing. This 72 year old woman is admitted with abdominal pain, diarrhoea, colitis. Has PMH of colitis, GERD, anxiety, depression, obesity, appendectomy, cholecystectomy. Objective - Vital Signs/Intake and Output Vital Signs (last 24 hours): Temp Pulse Resp BP Pulse Ox 97.9 F 77 20 137/61 99 07/17/17 16:00 07/17/17 16:00 07/17/17 16:00 07/17/17 16:00 07/17/17 16:00 Intake and Output: 07/17/17 07/18/17 18:59 06:59 Intake Total 0 Balance 0 - Medications Medications: Current Medications Alprazolam (Xanax) 0.25 mg PO BID PRN; Protocol PRN Reason: Anxiety Stop: 07/23/17 18:01 Last Admin: 07/17/17 21:12 Dose: 0.25 mg Dicyclomine HCl (Bentyl) 10 mg PO Q6H PRN PRN Reason: Diarrhea Sodium Chloride (Sodium Chloride 0.9%) 1,000 mls @ 40 mls/hr IV .Q24H [facility] Last Admin: 07/17/17 21:15 Dose: 40 mls/hr Metronidazole (Flagyl) 500 mg in 100 mls @ 100 mls/hr IVPB Q8 [place] PRN Reason: Protocol Last Admin: 07/17/17 21:12 Dose: 100 mls/hr Insulin Human Regular (Humulin R Med) 0 units SC ACHS [facility] PRN Reason: Protocol Last Admin: 07/17/17 22:00 Dose: Not Given Morphine Sulfate (Morphine) 1 mg IVP Q3 PRN PRN Reason: SEVERE PAIN [8-10] Last Admin: 07/17/17 14:21 Dose: 1 mg Ondansetron HCl (Zofran Inj) 4 mg IVP Q6H PRN PRN Reason: Nausea/Vomiting Pantoprazole Sodium (Protonix Inj) 40 mg IVP DAILY [facility] Last Admin: 07/17/17 09:23 Dose: 40 mg Vancomycin HCl (Vancocin 25 Mg/Ml (Oral Use)) 125 mg PO QID [place] PRN Reason: Protocol Last Admin: 07/17/17 21:12 Dose: 125 mg Zolpidem Tartrate (Ambien) 5 mg PO HS PRN; Protocol PRN Reason: Insomnia Last Admin: 07/17/17 22:27 Dose: 5 mg - Labs Labs: 07/17/17 06:00 07/17/17 06:00 Micro Results 07/16/17 20:50 Blood-Venous Blood Culture - Preliminary NO GROWTH AFTER 48 HOURS 07/16/17 20:50 Blood-Venous Blood Culture - Preliminary NO GROWTH AFTER 48 HOURS 07/16/17 15:13 Urine,Clean Catch Urine Culture - Final No Growth (<1,000 CFU/ML) Most Recent Lab Values WBC 4.8 10^3/ul (4.5-11.0) D 07/18/17 05:30 RBC 4.20 10^6/uL (3.5-6.1) 07/18/17 05:30 Hgb 12.1 g/dL (12.0-16.0) 07/18/17 05:30 Hct 37.4 % (36.0-48.0) 07/18/17 05:30 MCV 89.0 fl (80.0-105.0) 07/18/17 05:30 MCH 28.8 pg (25.0-35.0) 07/18/17 05:30 MCHC 32.4 g/dl (31.0-37.0) 07/18/17 05:30 RDW 14.1 % (11.5-14.5) 07/18/17 05:30 Plt Count 192 10^3/uL (120.0-450.0) 07/18/17 05:30 MPV 10.7 fl (7.0-11.0) 07/18/17 05:30 Gran % 51.3 % (50.0-68.0) 07/17/17 06:00 Lymph % (Auto) 36.0 % (22.0-35.0) H 07/17/17 06:00 [place] % (Auto) 8.6 % (1.0-6.0) H 07/17/17 06:00 Eos % (Auto) 3.6 % (1.5-5.0) 07/17/17 06:00 Baso % (Auto) 0.5 % (0.0-3.0) 07/17/17 06:00 Gran # 2.02 (1.4-6.5) 07/17/17 06:00 Lymph # (Auto) 1.4 (1.2-3.4) 07/17/17 06:00 [place] # (Auto) 0.3 (0.1-0.6) 07/17/17 06:00 Eos # (Auto) 0.1 (0.0-0.7) 07/17/17 06:00 Baso # (Auto) 0.02 K/mm3 (0.0-2.0) 07/17/17 06:00 Sodium 144 mmol/L (132-148) 07/18/17 05:30 Potassium 3.6 mmol/L (3.6-5.0) 07/18/17 05:30 Chloride 108 mmol/L (98-107) H 07/18/17 05:30 Carbon Dioxide 26 mmol/L (21-33) 07/18/17 05:30 Anion Gap 14 (10-20) 07/18/17 05:30 BUN 12 mg/dL (7-21) 07/18/17 05:30 Creatinine 0.9 mg/dl (0.7-1.2) 07/18/17 05:30 Est GFR ( Amer) > 60 07/18/17 05:30 Est GFR (Non-Af Amer) > 60 07/18/17 05:30 POC Glucose (mg/dL) 136 mg/dL (65-110) H 07/18/17 21:50 Random Glucose 90 mg/dL (70-110) 07/18/17 05:30 Calcium 8.8 mg/dL (8.4-10.5) 07/18/17 05:30 Magnesium 2.1 mg/dL (1.7-2.2) 07/16/17 09:50 Total Bilirubin 0.3 mg/dL (0.2-1.3) 07/18/17 05:30 AST 40 U/L (14-36) H 07/18/17 05:30 ALT 46 U/L (7-56) 07/18/17 05:30 Alkaline Phosphatase 104 U/L (38-126) 07/18/17 05:30 Total Protein 6.7 g/dL (5.8-8.3) 07/18/17 05:30 Albumin 4.1 g/dL (3.0-4.8) 07/18/17 05:30 Globulin 2.5 gm/dL 07/18/17 05:30 Albumin/Globulin Ratio 1.6 (1.1-1.8) 07/18/17 05:30 Lipase 82 U/L (23-300) 07/16/17 09:50 Urine Color Yellow (YELLOW) 07/16/17 14:10 Urine Appearance Clear (CLEAR) 07/16/17 14:10 Urine pH 7.0 (4.7-8.0) 07/16/17 14:10 Ur Specific [place] 1.010 (1.005-1.035) 07/16/17 14:10 Urine Protein Negative mg/dL (<30 mg/dL) 07/16/17 14:10 Urine Glucose (UA) Negative mg/dL (NEGATIVE) 07/16/17 14:10 Urine Ketones Negative mg/dL (NEGATIVE) 07/16/17 14:10 Urine Blood Negative (NEGATIVE) 07/16/17 14:10 Urine Nitrate Negative (NEGATIVE) 07/16/17 14:10 Urine Bilirubin Negative (NEGATIVE) 07/16/17 14:10 Urine Urobilinogen 0.2 E.U./dL (<1 E.U./dL) 07/16/17 14:10 Ur Leukocyte Esterase Trace [place]/uL (NEGATIVE) H 07/16/17 14:10 Urine RBC 0 - 2 /hpf (0-2) 07/16/17 14:10 Urine WBC 2 - 5 /hpf (0-6) 07/16/17 14:10 Ur Epithelial Cells 3 - 4 /hpf (0-5) 07/16/17 14:10 Urine Bacteria Few (NEG) 07/16/17 14:10 - Constitutional Appears: Well, No Acute Distress - Head Exam Head Exam: ATRAUMATIC, NORMAL INSPECTION, NORMOCEPHALIC - Eye Exam Eye Exam: Normal appearance - ENT Exam ENT Exam: Normal External Ear Exam - Neck Exam Neck Exam: Normal Inspection - Respiratory Exam Respiratory Exam: NORMAL BREATHING PATTERN. absent: Wheezes - Cardiovascular Exam Cardiovascular Exam: absent: JVD - GI/Abdominal Exam GI & Abdominal Exam: absent: Distended - Rectal Exam Rectal Exam: Deferred - Exam Additional comments: Deferred. - Back Exam Back Exam: NORMAL INSPECTION - Neurological Exam Neurological Exam: Alert, Awake, Oriented x3 - Psychiatric Exam Psychiatric exam: Normal Affect, Normal Mood - Skin Additional comments: Face and upper anterior chest have rashes. Assessment and Plan - Assessment and Plan (Free Text) Assessment: Skin rash. Allergic reaction to antibiotic? Colitis. GERD. Anxiety. Depression. Obesity. Plan: Benadryl 25 mg IV x1. Solumedrol 60 mg IV x 1. Hold Vanco + Flagyl Nurse will check with ID [employer] bi consultant. Plan as per PMD and ID [employer] bi consultant.
[2017-07-18 06:52] LABS: ALB/GLOB RATIO 1.6 (1.1-1.8); ALBUMIN 4.1 g/dL (3.0-4.8); ALT/SGPT 46 U/L (7-56); AST/SGOT 40 U/L (14-36); BLOOD UREA NITROGEN 12 mg/dL (7-21); CALCIUM 8.8 mg/dL (8.4-10.5); GFR AFRICAN-AMERICAN > 60; GFR NON-AFRICAN AMERICAN > 60
[2017-07-18 07:04] LABS: HEMOGLOBIN 12.1 g/dL (12.0-16.0); MEAN CORPUSCULAR HEMOGLOBIN 28.8 pg (25.0-35.0); MEAN CORPUSCULAR HGB CONC 32.4 g/dl (31.0-37.0); MEAN PLATELET VOLUME 10.7 fl (7.0-11.0); RBC 4.2 10^6/uL (3.5-6.1); RED CELL DISTRIBUTION WIDTH 14.1 % (11.5-14.5); WHITE BLOOD COUNT 4.8 10^3/ul (4.5-11.0)
[2017-07-18] MEDS: metroNIDAZOLE IV 500 mg/100 ml 500 MG/100 ML BAG IVPB SCH (08:00)
[2017-07-18 08:10] VITALS: O2SAT 97
[2017-07-18] MEDS: Insulin Reg-MEDIUM-Coverage SC SCH ×4 (10:19→22:23)
--- NOTE | 2017-07-18 10:34 | CP.PCM.PN ---
<Red Hein - Last Filed: 07/18/17 10:35> Subjective - Date & Time of Evaluation Date of Evaluation: 07/18/17 Time of Evaluation: 08:10 - Subjective Subjective: PGY4 Gi follow-up Pt seen and examined bedside States that he abd pain and diarrhea has improved +new rah Denies any fever, chills to diaphoresis ROS: 12 point ROS conducted, neg other than above Objective - Vital Signs/Intake and Output Vital Signs (last 24 hours): Temp Pulse Resp BP Pulse Ox 97.7 F 80 18 145/79 97 07/18/17 08:09 07/18/17 08:09 07/18/17 08:09 07/18/17 08:09 07/18/17 08:09 Intake and Output: 07/18/17 07/18/17 06:59 18:59 Intake Total 240 Balance 240 - Medications Medications: Current Medications Alprazolam (Xanax) 0.25 mg PO BID PRN; Protocol PRN Reason: Anxiety Stop: 07/23/17 18:01 Last Admin: 07/17/17 21:12 Dose: 0.25 mg Betamethasone/Clotrimazole (Lotrisone) 0 gm TOP BID [facility] Dicyclomine HCl (Bentyl) 10 mg PO Q6H PRN PRN Reason: Diarrhea Sodium Chloride (Sodium Chloride 0.9%) 1,000 mls @ 40 mls/hr IV .Q24H [facility] Last Admin: 07/17/17 21:15 Dose: 40 mls/hr Insulin Human Regular (Humulin R Med) 0 units SC ACHS [facility] PRN Reason: Protocol Last Admin: 07/18/17 10:19 Dose: Not Given Ketorolac Tromethamine (Toradol) 30 mg IVP Q8H PRN PRN Reason: Pain, moderate (4-7) Ondansetron HCl (Zofran Inj) 4 mg IVP Q6H PRN PRN Reason: Nausea/Vomiting Pantoprazole Sodium (Protonix Inj) 40 mg IVP BID [facility] Vancomycin HCl (Vancocin 25 Mg/Ml (Oral Use)) 125 mg PO QID [facility] PRN Reason: Protocol Last Admin: 07/17/17 21:12 Dose: 125 mg Zolpidem Tartrate (Ambien) 5 mg PO HS PRN; Protocol PRN Reason: Insomnia Last Admin: 07/17/17 22:27 Dose: 5 mg - Labs Labs: 07/18/17 05:30 07/18/17 05:30 - Constitutional Appears: Well, No Acute Distress - Head Exam Head Exam: ATRAUMATIC, NORMOCEPHALIC - Eye Exam Eye Exam: Normal appearance. absent: Scleral icterus Pupil Exam: NORMAL ACCOMODATION - ENT Exam ENT Exam: Mucous Membranes Moist, Normal Exam - Neck Exam Neck Exam: Normal Inspection - Respiratory Exam Respiratory Exam: Clear to Ausculation Bilateral, NORMAL BREATHING PATTERN. absent: Rales, Rhonchi, Wheezes, Respiratory Distress - Cardiovascular Exam Cardiovascular Exam: REGULAR RHYTHM, +S1, +S2 - GI/Abdominal Exam GI & Abdominal Exam: Soft, Normal Bowel Sounds. absent: Guarding, Rigid, Tenderness, Organomegaly - Extremities Exam Extremities Exam: absent: Joint Swelling, Pedal Edema - Neurological Exam Neurological Exam: Alert, Awake, Oriented x3 - Psychiatric Exam Psychiatric exam: Normal Affect, Normal Mood - Skin Skin Exam: Dry, Intact, Normal Color, Warm Assessment and Plan - Assessment and Plan (Free Text) Assessment: Rox Ruff is a 72F w/ hx of chronic abd pain and diarrhea who presents to the Er with complaints of abd pain and diarrhea Acute on chronic abd pain; etiology unknown Acute on chronic diarrhea; r/o infectous etiology: DDx: microscoptic, ischemic, and IBD Plan: -stool infectous w/u including culture and O&P pending -nancy protectin pending -advance diet as tolerated -c.diff pending, but diarrhea improved -can continue cipro and flagyl -pain management as per PCP -will also send stool electrolytes -can folloe-up as an outpt -if stool culures are neg, can consider imodium D/w Dr. Vazquez <Kyle Vazquez - Last Filed: 07/18/17 17:13> Objective - Vital Signs/Intake and Output Vital Signs (last 24 hours): Temp Pulse Resp BP Pulse Ox 97.7 F 80 18 145/79 97 07/18/17 08:09 07/18/17 08:09 07/18/17 08:09 07/18/17 08:09 07/18/17 08:09 Intake and Output: 07/18/17 07/18/17 06:59 18:59 Intake Total 840 Balance 840 - Medications Medications: Current Medications Alprazolam (Xanax) 0.25 mg PO BID PRN; Protocol PRN Reason: Anxiety Stop: 07/23/17 18:01 Last Admin: 07/18/17 10:50 Dose: 0.25 mg Betamethasone/Clotrimazole (Lotrisone) 0 gm TOP BID [facility] Last Admin: 07/18/17 10:51 Dose: 1 applic Dicyclomine HCl (Bentyl) 10 mg PO Q6H PRN PRN Reason: Diarrhea Sodium Chloride (Sodium Chloride 0.9%) 1,000 mls @ 40 mls/hr IV .Q24H [facility] Last Admin: 07/17/17 21:15 Dose: 40 mls/hr Insulin Human Regular (Humulin R Med) 0 units SC ACHS [facility] PRN Reason: Protocol Last Admin: 07/18/17 11:34 Dose: 1 units Ketorolac Tromethamine (Toradol) 30 mg IVP Q8H PRN PRN Reason: Pain, moderate (4-7) Last Admin: 07/18/17 10:49 Dose: 30 mg Ondansetron HCl (Zofran Inj) 4 mg IVP Q6H PRN PRN Reason: Nausea/Vomiting Pantoprazole Sodium (Protonix Inj) 40 mg IVP BID [facility] Vancomycin HCl (Vancocin 25 Mg/Ml (Oral Use)) 125 mg PO QID [facility] PRN Reason: Protocol Last Admin: 07/18/17 10:50 Dose: 125 mg Zolpidem Tartrate (Ambien) 5 mg PO HS PRN; Protocol PRN Reason: Insomnia Last Admin: 07/17/17 22:27 Dose: 5 mg - Labs Labs: 07/18/17 05:30 07/18/17 05:30 Attending/Attestation - Attestation I have personally seen and examined this patient.: Yes I have fully participated in the care of the patient.: Yes I have reviewed all pertinent clinical information, including history, physical exam and plan: Yes Notes (Text): 07/18/17 17:12 72 year old female admitted with possible colitis. She is improving clinically. Stool studies pending. She is on antibiotics. Advance diet to full liquids.
[2017-07-18] MEDS: Vancomycin 25 MG/ML PO SCH ×4 (10:50→21:53)
[2017-07-18] MEDS: Clotrimazole/Betamethasone Cream(15 gm) TOP SCH ×2 (10:51→17:51)
--- NOTE | 2017-07-18 11:39 | PN ---
DATE: SUBJECTIVE: I saw her this morning, sitting up in bed. Her son is present. This is the first morning in a while she has been comfortable, not really hungry yet, but the pain in the right side is not as bad. She wants to walk. She also has a rash on her anterior chest, thinking that it could be from her medication, I do not think so. I think this is a plain fungus infection. She had Benadryl. She has Solu-Medrol. I am going to put her on some Lotrisone cream. I changed her pain meds to Toradol. She is on vancomycin p.o. because I think it could be a C. diff, I do not think so. Her white counts has been good. PHYSICAL EXAMINATION: VITAL SIGNS: She has a 97.7 temp, 80 pulse, 145/79 blood pressure, 18 respiratory rate, 97% O2 sat on room air. HEENT: Head is atraumatic, normocephalic. GENERAL: She is alert and comfortable. HEART: Regular rate. LUNGS: Clear to auscultation with decreased breath sounds. ABDOMEN: Soft, nontender. Positive bowel sounds today, which is great. EXTREMITIES: No edema. MEDICATIONS: She is currently on Ambien, Bentyl, insulin coverage, Lotrisone cream now for the chest, morphine as needed, Protonix I increased it to twice a day, IV fluids, Toradol for pain on the right side with the case it happens, vancomycin orally now, Xanax and Zofran. LABORATORY DATA: She has a 4.8 white count, 12.2 hemoglobin, 37.4 hematocrit, 192 platelets. She has a 144 sodium, potassium 3.6, BUN 12, creatinine 0.9, GFR is greater than 60, sugar is 90, calcium is 8.8, total bili is 0.3, AST is 40, ALT is 46, alk phos 104, total protein 6.7, albumin is 4.1. Urine is clean. No growth in the blood. We have a lot of cultures pending in the stools. The CT scan showed colitis. ASSESSMENT AND PLAN: She is now on a liquid diet. We will continue to slowly increase the diet. I am also asking her to walk around, maybe she can tell me if the abdominal pain is improved. She could not walk yesterday, she was hunched over with pain. We will continue aggressive treatment and care of Rox with a chronic abdominal pain, failed outpatient treatment for colitis. Monty Ordoñez DO
[2017-07-18] MEDS: Sodium Chloride 0.9% 1,000 ML IV SCH (17:49)
[2017-07-18 18:54] VITALS: RESP 20
--- NOTE | 2017-07-18 22:35 | PN ---
DATE: 07/18/2017 SUBJECTIVE: The patient is in bed, in no acute distress, nontoxic. No fevers and chills. PHYSICAL EXAMINATION: GENERAL: Temperature is 97, blood pressure is 140/70, respiratory rate of 18. HEENT: Unremarkable. NECK: Supple. LUNGS: Have decreased breath sounds. HEART: Normal S1, S2. ABDOMEN: Soft, nontender. LABORATORY DATA: Reveals the white count of 4.8, hemoglobin of 12, platelets of 192. Chemistries revealed a BUN of 12, creatinine of 0.9. Urinalysis is noted. Microbiology reveals the blood cultures, urine cultures and . ASSESSMENT AND PLAN: A 72-year-old female with a history of colitis, history of anxiety, depression and Escherichia coli urinary tract infection, presenting with abdominal cramps and diarrhea. 1. Sepsis with colitis. The patient did have a rash on chest this morning and blood cultures are negative, urine cultures are negative. I doubt this to be bacterial cause rash, this rash was not present yesterday, may have been more seen antibiotic cause rash, may have been related to the patient was on morphine. Waiting for the stool for Clostridium difficile. If the stool for the Clostridium difficile is positive, we will continue the p.o vancomycin. We are also waiting for the stool cultures, may be need intravenous if the stool cultures are identified with a pathogen. Stool cultures and Clostridium difficile were both pending, we will continue the ceftriaxone and p.o. vancomycin. Pending stool cultures and stool for Clostridium difficile Dr. Monty Ordoñez at length. Cristobal Austin MD
[2017-07-19 06:56] LABS: HEMOGLOBIN 11.3 g/dL (12.0-16.0); MEAN CELL VOLUME 87.8 fl (80.0-105.0); MEAN CORPUSCULAR HEMOGLOBIN 28.7 pg (25.0-35.0); MEAN CORPUSCULAR HGB CONC 32.7 g/dl (31.0-37.0); MEAN PLATELET VOLUME 10.5 fl (7.0-11.0); RBC 3.94 10^6/uL (3.5-6.1); WHITE BLOOD COUNT 6.9 10^3/ul (4.5-11.0)
[2017-07-19 07:24] LABS: ALB/GLOB RATIO 1.5 (1.1-1.8); ALBUMIN 3.7 g/dL (3.0-4.8); ALT/SGPT 37 U/L (7-56); AST/SGOT 32 U/L (14-36); BLOOD UREA NITROGEN 12 mg/dL (7-21); CALCIUM 8.8 mg/dL (8.4-10.5); GFR AFRICAN-AMERICAN > 60; GFR NON-AFRICAN AMERICAN > 60
[2017-07-19 07:59] VITALS: BP 145/70; PULSE 77; TEMP 97.4
[2017-07-19] MEDS ORDERED: Potassium Chloride 20 mEq ER Tab PO ONE (08:14)
--- NOTE | 2017-07-19 08:24 | CP.PCM.PN ---
<Red Hein - Last Filed: 07/19/17 08:27> Subjective - Date & Time of Evaluation Date of Evaluation: 07/19/17 Time of Evaluation: 07:15 - Subjective Subjective: Pgy4 GI Follow-up Pt seen and examined bedside No complaints abd pain improving and diarrhea +BM last night and in the AM with improvement in consistency ROS: 12 point ROS conducted, neg other than above Objective - Vital Signs/Intake and Output Vital Signs (last 24 hours): Temp Pulse Resp BP Pulse Ox 97.4 F L 77 20 145/70 97 07/19/17 07:58 07/19/17 07:58 07/19/17 07:58 07/19/17 07:58 07/19/17 07:58 Intake and Output: 07/19/17 07/19/17 06:59 18:59 Intake Total 20 Balance 20 - Medications Medications: Current Medications Alprazolam (Xanax) 0.25 mg PO BID PRN; Protocol PRN Reason: Anxiety Stop: 07/23/17 18:01 Last Admin: 07/18/17 21:53 Dose: 0.25 mg Betamethasone/Clotrimazole (Lotrisone) 0 gm TOP BID [facility] Last Admin: 07/18/17 17:51 Dose: 1 applic Dicyclomine HCl (Bentyl) 10 mg PO Q6H PRN PRN Reason: Diarrhea Sodium Chloride (Sodium Chloride 0.9%) 1,000 mls @ 40 mls/hr IV .Q24H [facility] Last Admin: 07/18/17 17:49 Dose: 40 mls/hr Ceftriaxone Sodium (Rocephin 1 Gram Ivpb) 1 gm in 100 mls @ 100 mls/hr IVPB DAILY [facility] PRN Reason: Protocol Stop: 07/28/17 10:01 Insulin Human Regular (Humulin R Med) 0 units SC ACHS [facility] PRN Reason: Protocol Last Admin: 07/18/17 22:23 Dose: Not Given Ketorolac Tromethamine (Toradol) 30 mg IVP Q8H PRN PRN Reason: Pain, moderate (4-7) Last Admin: 07/18/17 10:49 Dose: 30 mg Ondansetron HCl (Zofran Inj) 4 mg IVP Q6H PRN PRN Reason: Nausea/Vomiting Pantoprazole Sodium (Protonix Inj) 40 mg IVP BID [facility] Last Admin: 07/18/17 17:54 Dose: 40 mg Vancomycin HCl (Vancocin 25 Mg/Ml (Oral Use)) 125 mg PO QID [facility] PRN Reason: Protocol Last Admin: 07/18/17 21:53 Dose: 125 mg Zolpidem Tartrate (Ambien) 5 mg PO HS PRN; Protocol PRN Reason: Insomnia Last Admin: 07/17/17 22:27 Dose: 5 mg - Labs Labs: 07/19/17 05:45 07/19/17 05:45 - Constitutional Appears: Non-toxic, In Acute Distress - Head Exam Head Exam: ATRAUMATIC, NORMOCEPHALIC - Eye Exam Eye Exam: Normal appearance - ENT Exam ENT Exam: Mucous Membranes Moist, Normal Exam - Neck Exam Neck Exam: Normal Inspection - Respiratory Exam Respiratory Exam: Clear to Ausculation Bilateral, NORMAL BREATHING PATTERN. absent: Rales, Rhonchi, Wheezes - Cardiovascular Exam Cardiovascular Exam: REGULAR RHYTHM, +S1, +S2 - GI/Abdominal Exam GI & Abdominal Exam: Soft, Normal Bowel Sounds. absent: Distended, Firm, Guarding, Rigid, Tenderness, Organomegaly - Extremities Exam Extremities Exam: absent: Joint Swelling, Pedal Edema - Neurological Exam Neurological Exam: Alert, Awake, Oriented x3 - Psychiatric Exam Psychiatric exam: Normal Affect, Normal Mood - Skin Skin Exam: Dry, Intact, Urticaria (chest), Warm Assessment and Plan - Assessment and Plan (Free Text) Assessment: Rox Ruff is a 72F w/ hx of chronic abd pain and diarrhea who presents to the Er with complaints of abd pain and diarrhea Acute on chronic abd pain; etiology unknown Acute on chronic diarrhea; r/o infectous etiology: DDx: microscoptic, ischemic, and IBD Plan: -stool infectous w/u including culture and O&P pending -nancy protectin pending -advance diet as tolerated -c.diff pending, but diarrhea improved -can discharge with Po abx for 7 days, consider bactrim DS -pain management as per PCP -will also send stool electrolytes -can folloe-up as an outpt -if stool culures are neg, can consider imodium D/w Dr. Reinoso <Zia Reinoso Y - Last Filed: 07/19/17 09:30> Objective - Vital Signs/Intake and Output Vital Signs (last 24 hours): Temp Pulse Resp BP Pulse Ox 97.4 F L 77 20 145/70 97 07/19/17 07:58 07/19/17 07:58 07/19/17 07:58 07/19/17 07:58 07/19/17 07:58 Intake and Output: 07/19/17 07/19/17 06:59 18:59 Intake Total 20 Balance 20 - Medications Medications: Current Medications Alprazolam (Xanax) 0.25 mg PO BID PRN; Protocol PRN Reason: Anxiety Stop: 07/23/17 18:01 Last Admin: 07/18/17 21:53 Dose: 0.25 mg Betamethasone/Clotrimazole (Lotrisone) 0 gm TOP BID [facility] Last Admin: 07/18/17 17:51 Dose: 1 applic Dicyclomine HCl (Bentyl) 10 mg PO Q6H PRN PRN Reason: Diarrhea Sodium Chloride (Sodium Chloride 0.9%) 1,000 mls @ 40 mls/hr IV .Q24H [facility] Last Admin: 07/18/17 17:49 Dose: 40 mls/hr Ceftriaxone Sodium (Rocephin 1 Gram Ivpb) 1 gm in 100 mls @ 100 mls/hr IVPB DAILY [facility] PRN Reason: Protocol Stop: 07/28/17 10:01 Last Admin: 07/19/17 09:23 Dose: 100 mls/hr Insulin Human Regular (Humulin R Med) 0 units SC ACHS [facility] PRN Reason: Protocol Last Admin: 07/19/17 08:31 Dose: Not Given Ketorolac Tromethamine (Toradol) 30 mg IVP Q8H PRN PRN Reason: Pain, moderate (4-7) Last Admin: 07/18/17 10:49 Dose: 30 mg Ondansetron HCl (Zofran Inj) 4 mg IVP Q6H PRN PRN Reason: Nausea/Vomiting Pantoprazole Sodium (Protonix Inj) 40 mg IVP BID [facility] Last Admin: 07/19/17 09:23 Dose: 40 mg Vancomycin HCl (Vancocin 25 Mg/Ml (Oral Use)) 125 mg PO QID [facility] PRN Reason: Protocol Last Admin: 07/19/17 09:24 Dose: 125 mg Zolpidem Tartrate (Ambien) 5 mg PO HS PRN; Protocol PRN Reason: Insomnia Last Admin: 07/17/17 22:27 Dose: 5 mg - Labs Labs: 07/19/17 05:45 07/19/17 05:45 Attending/Attestation - Attestation I have personally seen and examined this patient.: Yes I have fully participated in the care of the patient.: Yes I have reviewed all pertinent clinical information, including history, physical exam and plan: Yes Notes (Text): 07/19/17 09:27 I have seen and examined patient with GI fellow. No acute events overnight, she is seen sitting in chair comfortably. She reports one episode of loose bowel movement at 5 am today, otherwise denies abdominal pain, nausea, vomiting , fever/chills. Asking for her diet to be advanced. Review of vitals from today are normal. Chronic diarrhea Abdominal pain - acute colitis, likely infectious given clinical scenario - Advance diet as tolerated - Continue with antibiotic therapy, duration as per ID recommendations - Awaiting stool studies - No further planned GI interventions, from GI standpoint ok to discharge home with subsequent outpatient follow up. Will sign off case, please reconsult as necessary, thank you.
[2017-07-19] MEDS: Insulin Reg-MEDIUM-Coverage SC SCH ×2 (08:31→12:17)
[2017-07-19] MEDS: Vancomycin 25 MG/ML PO SCH (09:24)
[2017-07-19] MEDS ORDERED: cefTRIAXone 1 gm 1 GM/100 ML BAG IVPB SCH (10:00)
[2017-07-19] MEDS: Clotrimazole/Betamethasone Cream(15 gm) TOP SCH (10:11)
--- NOTE | 2017-07-19 17:16 | CP.PCM.PN ---
Subjective - Date & Time of Evaluation Date of Evaluation: 07/19/17 Time of Evaluation: 11:05 - Subjective Subjective: Still with right sided abdominal pain, but a little better, no more diarrhea, no fevers. Objective - Vital Signs/Intake and Output Vital Signs (last 24 hours): Temp Pulse Resp BP Pulse Ox 97.4 F L 77 20 145/70 97 07/19/17 07:58 07/19/17 07:58 07/19/17 07:58 07/19/17 07:58 07/19/17 07:58 Intake and Output: 07/19/17 07/19/17 06:59 18:59 Intake Total 20 Balance 20 - Labs Labs: 07/19/17 05:45 07/19/17 05:45 - Constitutional Appears: Chronically Ill - Head Exam Head Exam: NORMAL INSPECTION - ENT Exam ENT Exam: Mucous Membranes Moist - Neck Exam Neck Exam: absent: Meningismus - Respiratory Exam Respiratory Exam: absent: Rales - Cardiovascular Exam Cardiovascular Exam: +S1, +S2 - GI/Abdominal Exam GI & Abdominal Exam: Soft. absent: Tenderness Assessment and Plan - Assessment and Plan (Free Text) Plan: Assessment sepsis with acute colitis, R/O C. diff., in a patient with history of colitis dpression history of E. coli UTI anxiety disorder obesity with BMI 31 Plan Continue Rocephin and PO Vancomycin pending stool for C. diff.; follow up further GI recommendations
--- NOTE | 2017-07-20 05:32 | DS ---
SUMMARY: She is doing quite well. She is walking around in the room. She is drinking fluids well. No more abdominal pain. She feels back to normal. GI increased the diet today. If she does well after lunch, I will discharge her home. MEDICATIONS: She is on Ambien, Benadryl, Bentyl, potassium replacement, Lotrisone cream for dress. She is on Rocephin now, but will not need anymore antibiotics. She is on IV fluids, Toradol, vancomycin - she will need to be on it for 10 more days, Xanax as needed, and Zofran. PHYSICAL EXAMINATION: VITAL SIGNS: She has a 97.4 temperature, 77 pulse, 145/70 blood pressure, 20 respiratory rate, 97% O2 sat on room air. HEENT: Head is atraumatic, normocephalic. GENERAL: She is smiling. She is comfortable. She is in good spirits. CHEST: Redness of fungal infection is healing with the cream. HEART: Regular rate. LUNGS: Clear to auscultation. ABDOMEN: Soft, nontender. Positive bowel sounds. No guarding or rebound. No pain anywhere in the entire abdomen today, good day. EXTREMITIES: No edema. LABORATORY DATA: She has a 6.9 white count, 11.3 hemoglobin, 34.6 hematocrit, 199 platelets. Sodium 145, potassium 3.4, I gave her potassium today to replace that. BUN is 12, creatinine 0.8, GFR is greater than 60. Sugar is 110. Calcium is 8.8. Total bili is 0.2, AST is 32, ALT is 37, alk phos 97, total protein 6.2. Urine was few. PLAN: To discharge her today after lunch if she eats well. She was being seen by Infectious Disease and by GI, and I will see her in the office in a week. I understand she is going to go see her GI for colonoscopy in the next week. Hopefully, she can be discharged later today. Monty Ordoñez DO
== END 2017-07-19 14:38 | disposition home or self-care (01) | DRG 392 ==
LOC: ED 08:44 → ERH 14:07 → 3RSO 16:24 → 3RNO 17:31
PROVIDERS: ADMIT Family Medicine; ATTEND Family Medicine
DX: K52.9 Noninfective gastroenteritis and colitis, unspecified (principal); E11.9 Type 2 diabetes mellitus without complications; K21.9 Gastro-esophageal reflux disease without esophagitis; R16.1 Splenomegaly, not elsewhere classified; G89.29 Other chronic pain; F41.9 Anxiety disorder, unspecified; F32.9 Major depressive disorder, single episode, unspecified; E66.9 Obesity, unspecified; Z68.31 Body mass index [BMI] 31.0-31.9, adult; R21 Rash and other nonspecific skin eruption; Z90.49 Acquired absence of other specified parts of digestive tract; Z87.440 Personal history of urinary (tract) infections

== ENCOUNTER 2017-09-20 13:10 | Observation (INO) | payer OTHER ==
[2017-09-20 13:47] VITALS: BMI 30.8
--- NOTE | 2017-09-20 14:29 | ED PDOC ---
Arrival/HPI - General Chief Complaint: Abdominal Pain Time Seen by Provider: 09/20/17 14:00 Historian: Patient - History of Present Illness Narrative History of Present Illness (Text): 09/20/17 14:22 72 year old female, with past medical and surgical history of appendectomy, cholecystomy, and colitis, presents to the Emergency department complaining of right sided flank pain since few days. Patient informs worsening pain radiating to her right arm and back for which she contacted her PMD Dr. Ordoñez on Wednesday. As per patient, Dr. Ordoñez referred her to the Emergency department for evaluation of possible renal cyst. Patient currently complains of associated dizziness and dehydration since this morning prompting her to present to the ED. Patient denies any fever, chills, nausea, vomiting, diarrhea , abdominal pain, chest pain, shortness of breath, dysuria, hematuria, urinary output changes or any other complaints. PMD: Dr. Ordoñez Time/Duration: < week Symptom Onset: Gradual Symptom Course: Unchanged Quality: Aching Activities at Onset: Light Context: Home Past Medical History - Provider Review Nursing Documentation Reviewed: Yes - Infectious Disease Hx of Infectious Diseases: None - Reproductive Menopause: Yes - Past Medical History Past Medical History: No Previous - Cardiac Hx Cardiac Disorders: No - Pulmonary Hx Respiratory Disorders: No - Neurological Hx Neurological Disorder: No Hx Transient Ischemic Attacks (TIA): No - HEENT Hx HEENT Disorder: Yes (using reading glasses) - Renal Hx Renal Disorder: No - Endocrine/Metabolic Hx Endocrine Disorders: No - Hematological/Oncological Hx Blood Disorders: No - Integumentary Hx Dermatological Disorder: No - Musculoskeletal/Rheumatological Hx Musculoskeletal Disorders: Yes - Gastrointestinal Hx Gastrointestinal Disorders: Yes Hx Colitis: Yes Hx Gall Bladder Disease: Yes (gall bladder stones removed) Hx Gastroesophageal Reflux: Yes Other/Comment: RECENT CT SCAN SHOWS MILD SPLENOMEGALY - Genitourinary/Gynecological Hx Genitourinary Disorders: No - Psychiatric Hx Psychophysiologic Disorder: Yes Hx Anxiety: Yes Hx Depression: Yes Hx Physical Abuse: No Hx Substance Use: No Other/Comment: INSOMIA - Surgical History Hx Appendectomy: Yes Hx Cholecystectomy: Yes - Anesthesia Hx Anesthesia: Yes Hx Anesthesia Reactions: Yes (VOMITING) Hx Malignant Hyperthermia: No - Suicidal Assessment Feels Threatened In Home Enviroment: No Family/Social History - Physician Review Nursing Documentation Reviewed: Yes Family/Social History: No Known Family HX Smoking Status: Never Smoked Hx Alcohol Use: No Hx Substance Use: No Hx Substance Use Treatment: No Allergies/Home Meds Allergies/Adverse Reactions: Allergies morphine Allergy (Intermediate, Verified 09/20/17 19:29) RASH ITCHY Home Medications: Home Meds Medication Instructions Recorded Confirmed ALPRAZolam HALF TABLET [Xanax] 0.5 mg PO PRN PRN 03/09/16 09/20/17 Zolpidem [Ambien] 10 mg PO HS 03/09/16 09/20/17 Esomeprazole Magnesium [Nexium] 40 mg PO DAILY 08/09/17 09/20/17 Review of Systems - Physician Review All systems were reviewed & negative as marked: Yes - Review of Systems Constitutional: absent: Fevers Respiratory: absent: SOB Cardiovascular: absent: Chest Pain Gastrointestinal: absent: Abdominal Pain, Diarrhea, Nausea, Vomiting Genitourinary Female: absent: Dysuria, Hematuria, Urine Output Changes Musculoskeletal: Back Pain (right sided flank pain radiating to right arm.) Physical Exam - Physical Exam Narrative Physical Exam (Text): 09/20/17 14:39 Gen: VS reviewed, alert, well developed, well nourished, nontoxic, mild distress ENT: normal pharynx Eye: EOMI, PERRL Neck: no JVD, supple, no adenopathy CV: regular rate, regular rhythm, no rubs,no murmur, no gallops, S1, S2, pulses equal and strong Pulm: no distress, clear to auscultation, no wheeze, no rhonchi, breath sounds equal, no rales Abd: soft, diffused tenderness of lower abdomen and right flank, no guarding, no rebound, no rigidity, normal bowel sounds Ext: no edema Skin: good color, no rash, no cyanosis Psych: responds appropriately to questions, normal affect Neuro: oriented x3, CN2-12 intact grossly, motor intact, sensation intact Vital Signs Reviewed: Yes Vital Signs Temp Pulse Resp BP Pulse Ox 09/20/17 18:57 79 18 128/64 97 09/20/17 17:00 81 18 130/61 97 09/20/17 14:58 89 18 132/64 96 09/20/17 13:46 97.8 F 99 H 18 134/68 96 Temperature: Afebrile Blood Pressure: Normal Pulse: Tachycardic Respiratory Rate: Normal Appearance: Positive for: Well-Appearing, Non-Toxic, Comfortable Pain Distress: Mild Mental Status: Positive for: Alert and Oriented X 3 Medical Decision Making ED Course and Treatment: 09/20/17 14:39 Impression: 72 year old female presents to the Emergency department for right sided flank pain associated with dizziness and dry mouth. Plan: -- CT of Abdomen/pelvis -- EKG -- Labs -- IV Fluids -- Toradol -- Zofran -- Urinalysis -- Reassess and disposition Prior Visits: Notes and results from previous visits were reviewed. Progress Notes: 09/20/17 17:[address] Vyas, who is aware and agrees with Emergency department management plan to admit patient to Telemetry for further observation and treatment. 09/20/17 18:[address] Ordoñez, patient will be admitted to hospital Observation. - Lab Interpretations Lab Results: 09/20/17 14:43 09/20/17 14:43 Lab Results 09/20/17 14:43: Sodium 142, Potassium 4.0, Chloride 105, Carbon Dioxide 26, Anion Gap 14, BUN 21, Creatinine 1.0, Est GFR ( Amer) > 60, Est GFR (Non- Af Amer) 54, Random Glucose 119 H, Calcium 8.6, Total Bilirubin 0.5, AST 22, ALT 29, Alkaline Phosphatase 106, Troponin I < 0.01, Total Protein 6.7, Albumin 3.8, Globulin 2.8, Albumin/Globulin Ratio 1.4, Lipase 50 09/20/17 14:43: Urine Color Yellow, Urine Appearance Clear, Urine pH 6.0, Ur Specific [place] >= 1.030, Urine Protein Trace H, Urine Glucose (UA) Negative, Urine Ketones Trace H, Urine Blood Negative, Urine Nitrate Negative, Urine Bilirubin Small H, Urine Urobilinogen 0.2, Ur Leukocyte Esterase Negative, Urine RBC Negative, Urine WBC 0 - 2, Ur Epithelial Cells 3 - 4, Urine Bacteria Few, Urine Other Usperm 09/20/17 14:43: WBC 5.9, RBC 3.96, Hgb 11.4 L, Hct 34.9 L, MCV 88.1, MCH 28.8, MCHC 32.7, RDW 14.6 H, Plt Count 195, MPV 10.1, Gran % 67.2, Lymph % (Auto) 20.4 L, [place] % (Auto) 8.4 H, Eos % (Auto) 3.7, Baso % (Auto) 0.3, Gran # 3.99, Lymph # (Auto) 1.2, [place] # (Auto) 0.5, Eos # (Auto) 0.2, Baso # (Auto) 0.02 - RAD Interpretation Narrative RAD Interpretations (Text): 09/20/17 15:40 Chest X-ray reviewed by radiologist, shows no active pulmonary disease. 09/20/17 17:17 CT of Abdomen/Pelvis reviewed by radiologist, shows: No acute abdominal or pelvic abnormality. Small sliding hiatal hernia. Confluent airspace disease in the left lung base may represent pneumonia. Follow-up after medical management is recommended to ensure complete resolution. Radiology Orders: 09/20/17 14:19 CHEST PORTABLE [RAD] Stat 09/20/17 14:20 ABDOMEN & PELVIS [ABD & PELVIS IV CONTRAST ONLY] [CT] Stat Bottom Turner: Radiologist - EKG Interpretation EKG Interpretation (Text): 09/20/17 15:53 1431: sinus rhythm at 94 bpm, lbbb, no ectopy: no chest pain - Medication Orders Current Medication Orders: Alprazolam (Xanax) 0.5 mg PO TID [facility] Sodium Chloride (Sodium Chloride 0.9%) 1,000 mls @ 80 mls/hr IV .[id number] [facility] Last Admin: 09/20/17 19:13 Dose: 80 mls/hr eMAR Start Stop Document 09/20/17 19:13 OCS (Rec: 09/20/17 19:13 OCS [email or web address] Intravenous Solution Start Date 09/20/17 Start Time 19:13 Pantoprazole Sodium (Protonix Inj) 40 mg IVP DAILY [facility] Zolpidem Tartrate (Ambien) 10 mg PO HS [facility] PRN Reason: Protocol Discontinued Medications Sodium Chloride (Sodium Chloride 0.9%) 1,000 mls @ 100 mls/hr IV .[id number] [facility] Last Admin: 09/20/17 14:44 Dose: 100 mls/hr eMAR Start Stop Document 09/20/17 14:44 OCS (Rec: 09/20/17 14:44 [email or web address] Intravenous Solution Start Date 06/25/18 Start Time 14:44 Ketorolac Tromethamine (Toradol) 30 mg IVP STAT STA Stop: 09/20/17 14:22 Last Admin: 09/20/17 14:45 Dose: 30 mg MAR Pain Assessment Document 09/20/17 14:45 OCS (Rec: 09/20/17 14:45 OCS [email or web address] Pain Reassessment Is this a pain reassessment? No Sleep Is patient sleeping during reassessment? No Pain Scale Used Pain Scale Used Numeric Location Left, Right or Bilateral Right Upper or Lower Upper Pain Location Body Site Abdomen Description Description Constant Intensity of Pain at present 10 Aggravating Factors ADL's IVP Administration Document 09/20/17 14:45 OCS (Rec: 09/20/17 14:45 OCS [email or web address] Charges for Administration # of IVP Administrations 1 Ondansetron HCl (Zofran Inj) 4 mg IVP STAT STA Stop: 09/20/17 14:22 Last Admin: 09/20/17 14:45 Dose: 4 mg IVP Administration Document 09/20/17 14:45 OCS (Rec: 09/20/17 14:45 OCS [email or web address] Charges for Administration # of IVP Administrations 1 - Scribe Statement The provider has reviewed the documentation as recorded by the Scribe Ada Andrews. All medical record entries made by the Scribe were at my direction and personally dictated by me. I have reviewed the chart and agree that the record accurately reflects my personal performance of the history, physical exam, medical decision making, and the department course for this patient. I have also personally directed, reviewed, and agree with the discharge instructions and disposition. Disposition/Present on Arrival - Present on Arrival Any Indicators Present on Arrival: No History of DVT/PE: No History of Uncontrolled Diabetes: No Urinary Catheter: No History of Decub. Ulcer: No History Surgical Site Infection Following: None - Disposition Have Diagnosis and Disposition been Completed?: Yes Diagnosis: Near syncope Disposition: HOSPITALIZED Disposition Time: 21:44 Condition: GOOD
[2017-09-20] MEDS ORDERED: Sodium Chloride 0.9% 1,000 ML IV SCH (14:30)
--- NOTE | 2017-09-20 14:49 | RAD ---
HISTORY: Chest pain COMPARISON: 05/12/2016. FINDINGS: LUNGS: The lungs are well inflated and clear. PLEURA: No significant pleural effusion identified, no pneumothorax apparent. CARDIOVASCULAR: Normal. OSSEOUS STRUCTURES: No significant abnormalities. VISUALIZED UPPER ABDOMEN: Normal. OTHER FINDINGS: None. IMPRESSION: No active pulmonary disease.
[2017-09-20 15:04] LABS: BASO # 0.02 K/mm3 (0.0-2.0); BASO % 0.3 % (0.0-3.0); EOS # 0.2 (0.0-0.7); EOS % 3.7 % (1.5-5.0); GRAN # 3.99 (1.4-6.5); GRAN % 67.2 % (50.0-68.0); HEMOGLOBIN 11.4 g/dL (12.0-16.0); LYMPH # 1.2 (1.2-3.4); LYMPH % 20.4 % (22.0-35.0); MEAN CELL VOLUME 88.1 fl (80.0-105.0); MEAN CORPUSCULAR HEMOGLOBIN 28.8 pg (25.0-35.0); MEAN CORPUSCULAR HGB CONC 32.7 g/dl (31.0-37.0); MEAN PLATELET VOLUME 10.1 fl (7.0-11.0); MONO # 0.5 (0.1-0.6); MONO % 8.4 % (1.0-6.0); RBC 3.96 10^6/uL (3.5-6.1); RED CELL DISTRIBUTION WIDTH 14.6 % (11.5-14.5); URINE BILIRUBIN SMALL (NEGATIVE); URINE BLOOD NEGATIVE (NEGATIVE); URINE GLUCOSE (UA) NEGATIVE (NEGATIVE); URINE LEUKOCYTE ESTERASE NEGATIVE Leu/uL (NEGATIVE); URINE PROTEIN TRACE mg/dL (<30 mg/dL); URINE UROBILINOGEN 0.2 E.U./dL (<1 E.U./dL); WHITE BLOOD COUNT 5.9 10^3/ul (4.5-11.0)
[2017-09-20 15:05] LABS: URINE APPEARANCE CLEAR (CLEAR); URINE COLOR YELLOW (YELLOW)
[2017-09-20 15:15] LABS: ALB/GLOB RATIO 1.4 (1.1-1.8); ALBUMIN 3.8 g/dL (3.0-4.8); ALT/SGPT 29 U/L (7-56); AST/SGOT 22 U/L (14-36); BLOOD UREA NITROGEN 21 mg/dL (7-21); CALCIUM 8.6 mg/dL (8.4-10.5); GFR NON-AFRICAN AMERICAN 54; LIPASE 50 U/L (23-300)
[2017-09-20 15:19] LABS: URINE RBC NEGATIVE /hpf (0-2); URINE WBC 0 - 2 /hpf (0-6)
[2017-09-20 15:20] LABS: URINE BACTERIA FEW (NEG)
[2017-09-20 15:27] LABS: TROPONIN I < 0.01 ng/mL
[2017-09-20] MEDS ORDERED: Iohexol 350 MG/100 ML VIAL ONE (15:38)
--- NOTE | 2017-09-20 16:35 | CT ---
PROCEDURE: CT Abdomen and Pelvis with contrast HISTORY: Right-sided abdominal pain COMPARISON: 07/16/2017. TECHNIQUE: CT scan of the abdomen and pelvis was performed after administration of intravenous contrast. Oral contrast was not administered. Coronal and sagittal reformatted images were obtained. Contrast dose: Radiation dose: Total exam DLP = 750.30 mGy-cm. This CT exam was performed using one or more of the following dose reduction techniques: Automated exposure control, adjustment of the mA and/or kV according to patient size, and/or use of iterative reconstruction technique. FINDINGS: LOWER THORAX: There is subsegmental atelectasis in the right lung base and lingula. There is more confluent airspace disease in the left lung base. LIVER: Normal in size with homogeneous enhancement. No gross lesion or ductal dilatation. GALLBLADDER AND BILE DUCTS: Surgically absent. PANCREAS: Normal in size with homogeneous enhancement. No gross lesion or ductal dilatation. SPLEEN: Normal in size with homogeneous enhancement. ADRENALS: No discrete nodule. KIDNEYS AND URETERS: Normal in size with homogeneous enhancement. There is a 2.9 cm simple cyst in the lower pole of the right kidney. There is an extrarenal pelvis on the left. No hydronephrosis. No solid mass. VASCULATURE: Unremarkable. No aortic aneurysm. BOWEL: The small bowel loops are normal in caliber. The colon is decompressed. No bowel dilatation or obstruction APPENDIX: Surgically absent. PERITONEUM: No free fluid. No free air. LYMPH NODES: No enlarged lymph nodes. BLADDER: Grossly normal in appearance. REPRODUCTIVE: The uterus is normal in size. BONES: No acute fracture. OTHER FINDINGS: There is a small sliding hiatal hernia. IMPRESSION: No acute abdominal or pelvic abnormality. Small sliding hiatal hernia. Confluent airspace disease in the left lung base may represent pneumonia. Follow-up after medical management is recommended to ensure complete resolution.
[2017-09-20] MEDS: Sodium Chloride 0.9% 1,000 ML IV SCH (19:13)
--- NOTE | 2017-09-20 20:07 | CP.PCM.CON ---
History of Present Illness - History of Present Illness History of Present Illness: General Surgery Consult note for Dr. Patrida Consulted for: "right abdominal pain, patient requests surgical evaluation." Patient is a 72F with PMH of colitis, depression, and anxiety and PSH of cholecystectomy and appendectomy who presented to the ER for chronic right abdominal discomfort with radiation to her right arm, dehydration and feeling faint. Patient states abdominal discomfort started in June--2 months ago--with a sensation of something moving under her skin in her right upper abdomen. Patient states it constant but is worse after she eats or takes colace. Pain has recenly begun to radiate to her right flank and occasionally up to her right arm with a compression sensation. Patient has limited her PO intake to jello, oatmeal, and cream of wheat in fear of the pain. Patient takes daily nexium but denies any GERD, has some constipation for which she takes miralax at night daily with daily soft bowel movements of normal color with no blood. Patient reports a 10 pound weight loss since onset of symptoms. Patient state she has increased anxiety which makes her nauseated but denies any vomiting, diarrhea, blood in her stool, melena, dysuria, hematuria, vaginal bleeding or discharge, dyspareunia, chest pain, fevers or chills. Patient underwent endoscopy and colonoscopy 08/09/[address] Clinton, which revealed gastritis, but no h. pylori, and no gross or microscopic colitis. Patient denies any prior occurrence. Patient denies any family history of similar symptoms or cancer. PMH: colitits, anxiety, depression, insomnia, right renal cyst PSH: appendectomy, cholecystectomy ALL: morphine Social: denies tobacco, ETOH, and illicit drug use Review of Systems - Review of Systems All systems: reviewed and no additional remarkable complaints except (as per HPI ) Past Patient History - Infectious Disease Hx of Infectious Diseases: None - Past Medical History & Family History Past Medical History?: Yes Past Family History: Reviewed and not pertinent - Past Social History Smoking Status: Never Smoked Alcohol: None Drugs: Denies Home Situation {Lives}: With Family - CARDIAC Hx Cardiac Disorders: No - PULMONARY Hx Respiratory Disorders: No - NEUROLOGICAL Hx Neurological Disorder: No Hx Transient Ischemic Attacks (TIA): No - HEENT Hx HEENT Problems: Yes (using reading glasses) - RENAL Hx Chronic Kidney Disease: No Other/Comment: right renal cyst - ENDOCRINE/METABOLIC Hx Endocrine Disorders: No - HEMATOLOGICAL/ONCOLOGICAL Hx Blood Disorders: No - INTEGUMENTARY Hx Dermatological Problems: No - MUSCULOSKELETAL/RHEUMATOLOGICAL Hx Musculoskeletal Disorders: Yes - GASTROINTESTINAL Hx Gastrointestinal Disorders: Yes Hx Colitis: Yes Hx Constipation: Yes Hx Gall Bladder Disease: Yes (s/p cholecystectomy) Hx Gastroesophageal Reflux: Yes - GENITOURINARY/GYNECOLOGICAL Hx Genitourinary Disorders: No - PSYCHIATRIC Hx Psychophysiologic Disorder: Yes Hx Anxiety: Yes Hx Depression: Yes Hx Physical Abuse: No Hx Substance Use: No Other/Comment: INSOMIA - SURGICAL HISTORY Hx Appendectomy: Yes Hx Cholecystectomy: Yes - ANESTHESIA Hx Anesthesia: Yes Hx Anesthesia Reactions: Yes (VOMITING) Hx Malignant Hyperthermia: No Meds Allergies/Adverse Reactions: Allergies Allergy/AdvReac Type Severity Reaction Status Date / Time morphine Allergy Intermediate RASH Verified 09/20/17 19:29 - Medications Medications: Current Medications Alprazolam (Xanax) 0.5 mg PO TID [facility] Sodium Chloride (Sodium Chloride 0.9%) 1,000 mls @ 80 mls/hr IV .[id number] [facility] Last Admin: 09/20/17 19:13 Dose: 80 mls/hr Pantoprazole Sodium (Protonix Inj) 40 mg IVP DAILY [facility] Zolpidem Tartrate (Ambien) 10 mg PO HS [facility] PRN Reason: Protocol Physical Exam - Constitutional Appears: Well, Non-toxic, No Acute Distress - Head Exam Head Exam: ATRAUMATIC, NORMOCEPHALIC - Eye Exam Eye Exam: Normal appearance. absent: Conjunctival injection, Scleral icterus - ENT Exam ENT Exam: Mucous Membranes Moist, Normal Oropharynx - Respiratory Exam Respiratory Exam: NORMAL BREATHING PATTERN. absent: Accessory Muscle Use, Respiratory Distress - Cardiovascular Exam Cardiovascular Exam: RRR - GI/Abdominal Exam GI & Abdominal Exam: Soft, Tenderness (mild RUQ tenderness). absent: Distended , Guarding, Hernia, Mass Additional comments: Palpable intestinal peristaltic activity in the RUQ and LUQ which was coincided with the discomforting sensation endorsed by patient - Rectal Exam Rectal Exam: absent: Black Stool, Bloody Stool, Fecal Impaction Additional comments: skin tags anterior anus, no external hemorroids, no fissures, normal sphincter tone, minimal light brown soft stool in rectal vault, no masses - Extremities Exam Extremities exam: Positive for: pedal pulses present. Negative for: calf tenderness, pedal edema - Back Exam Back exam: absent: CVA tenderness (L), CVA tenderness (R), rash noted - Neurological Exam Neurological exam: Alert, Oriented x3 - Psychiatric Exam Psychiatric exam: Anxious, Normal Affect - Skin Skin Exam: Dry, Intact, Normal Color, Warm Results - Vital Signs Recent Vital Signs: Last Vital Signs Temp 97.8 F 09/20/17 13:46 Pulse 79 09/20/17 18:57 Resp 18 09/20/17 18:57 BP 128/64 09/20/17 18:57 Pulse Ox 97 09/20/17 18:57 - Labs Result Diagrams: 09/20/17 14:43 09/20/17 14:43 Labs: Laboratory Results - last 24 hr 09/20/17 18:11 Troponin I < 0.01 Assessment & Plan - Assessment and Plan (Free Text) Assessment: 72F with right spasmodic upper abdominal discomfort Plan: No indication for surgical intervention at this time--no significant findings seen on CT besides right kidney stones and small hiatal hernia, exam is benign, recent endoscopy/colonoscopy negative except for gastritis, no leukocystosis or chemistry/LFT abnormalities Mild anemia on CBC--follow up stool occult blood test collected during exam Diet as tolerated IVF as needed for hydration PRN pain and nausea medication but judicious use of narcotics in light of patient's constipation history Continue home anxiety medication F/U GI recs Will discuss with Dr. Partida, further recs per him Zaida Bishop, PGY2
[2017-09-20] MEDS ORDERED: Pneumococcal 23-Valent Vaccine IM ONE (22:32)
--- NOTE | 2017-09-20 22:33 | CARD ---
APPROVED REPORT EKG Measurement Heart [id number] <Conclusion> Sinus rhythm Left axis deviation Left bundle branch block Abnormal ECG
[2017-09-21] MEDS: Sodium Chloride 0.9% 1,000 ML IV SCH ×2 (05:11→10:03)
[2017-09-21 06:03] VITALS: O2SAT 95
[2017-09-21 06:25] LABS: HEMOGLOBIN 11.7 g/dL (12.0-16.0); MEAN CELL VOLUME 88.5 fl (80.0-105.0); MEAN CORPUSCULAR HEMOGLOBIN 28.7 pg (25.0-35.0); MEAN CORPUSCULAR HGB CONC 32.5 g/dl (31.0-37.0); MEAN PLATELET VOLUME 10.4 fl (7.0-11.0); RBC 4.07 10^6/uL (3.5-6.1); RED CELL DISTRIBUTION WIDTH 14.7 % (11.5-14.5); WHITE BLOOD COUNT 5.7 10^3/ul (4.5-11.0)
--- NOTE | 2017-09-21 06:25 | HP ---
HISTORY OF PRESENT ILLNESS: I have been seeing her on the outpatient for a 3-month history of right-sided abdominal pain. She had multiple ultrasounds and CAT scans in the outpatient, and the only thing we found was a right renal cyst. She also had multiple lab tests, but she is here in the emergency room today being a 71-year-old white female with a near syncopal episode. She was dizzy, possibly did not drink enough fluids; and she is here not feeling well. PAST MEDICAL HISTORY: She has a past medical history of colitis, GERD, gallbladder stones removed, mild splenomegaly in the past, right kidney cyst, anxiety, depression, insomnia, appendectomy, cholecystectomy. FAMILY HISTORY: No known family history. SOCIAL HISTORY: No smoking, no drinking, no drugs. ALLERGIES: MORPHINE. MEDICATIONS: She is on Xanax, Ambien, and Nexium. REVIEW OF SYSTEMS: No acute vision or hearing changes. No shortness of breath or cough. No chest pain or palpitations. There is right-sided abdominal pain. It is severe. She has had it for 3 months. She wants to see a surgeon. She wants to see a urologist for the right kidney cyst. Very uncomfortable. No problems urinating. No skin issues that she knows of. No CVA tenderness. She can move all four extremities. Little anxious. PHYSICAL EXAMINATION: GENERAL: She is well-developed, alert and oriented x3. VITAL SIGNS: She has a 97.8 temperature, 99 pulse, 18 respiratory rate, 134/68 blood pressure, 96% O2 sat on room air. HEENT: Head is atraumatic, normocephalic. Extraocular muscles are intact. Pupils are equal and reactive to light and accommodation. Throat is moist. HEART: Regular rate. Normal S1, S2. LUNGS: Decreased breath sounds bilaterally, but clear to auscultation. ABDOMEN: Soft, obese, nontender. Positive bowel sounds. Right sided abdominal pain on and off for 3 months, severe. No CVA tenderness. EXTREMITIES: There is no edema. SKIN: Good color. No rashes or ulcers appreciated. NEUROLOGIC: Alert and oriented x3. Cranial nerves II-XII grossly intact. LABORATORY DATA: She had multiple tests. She had a urine which showed small bilirubin. Sodium 142, potassium 4, BUN 21, creatinine 1, GFR is 54, sugar is 119, calcium is 8.6, total bili is 0.5, AST is 22, ALT is 29, alk phos 106. Troponin I is less than 0.01, total protein 6.7, albumin is 3.8, lipase is 50. White count 5.9, hemoglobin 11.4, hematocrit 34.9, platelets of 195. Chest x-ray was okay. EKG showed a right kidney cyst. ASSESSMENT AND PLAN: She is here for near-syncopal, severe right-sided abdominal pain which is persistent, and a right renal cyst. We will watch her very closely. Check her labs in the morning. She will be in observation status. We will check her labs. Monty Ordoñez DO
[2017-09-21 06:50] LABS: ALB/GLOB RATIO 1.3 (1.1-1.8); ALBUMIN 3.8 g/dL (3.0-4.8); ALT/SGPT 25 U/L (7-56); AMYLASE 80 U/L (35-125); AST/SGOT 23 U/L (14-36); BLOOD UREA NITROGEN 16 mg/dL (7-21); CALCIUM 8.6 mg/dL (8.4-10.5); GFR NON-AFRICAN AMERICAN > 60
--- NOTE | 2017-09-21 07:33 | CP.PCM.PN ---
Subjective - Date & Time of Evaluation Date of Evaluation: 09/21/17 Time of Evaluation: 07:31 - Subjective Subjective: General surgery progress note for Dr.Simpson-Aline Lazar, PGY-1 Pt S & E at bedside at 0700 Pt reports continued RUQ/right flank pain while awake. Pt able to sleep with aid of Ambien. Is afraid to eat due to pain with eating. Denies N & V, F & C. Objective - Vital Signs/Intake and Output Vital Signs (last 24 hours): Temp Pulse Resp BP Pulse Ox 98.9 F 92 H 18 146/72 95 09/21/17 06:00 09/21/17 06:00 09/21/17 06:00 09/21/17 06:00 09/21/17 06:00 Intake and Output: 09/21/17 09/21/17 06:59 18:59 Intake Total 1440 Output Total 600 Balance 840 - Medications Medications: Current Medications Alprazolam (Xanax) 0.5 mg PO TID [facility] Sodium Chloride (Sodium Chloride 0.9%) 1,000 mls @ 80 mls/hr IV .[id number] [facility] Last Admin: 09/21/17 05:11 Dose: 80 mls/hr Pantoprazole Sodium (Protonix Inj) 40 mg IVP DAILY [facility] Zolpidem Tartrate (Ambien) 10 mg PO HS [facility] PRN Reason: Protocol Last Admin: 09/20/17 22:41 Dose: 10 mg - Labs Labs: 09/21/17 06:10 09/21/17 06:10 - Constitutional Appears: Non-toxic, No Acute Distress - Head Exam Head Exam: ATRAUMATIC, NORMAL INSPECTION, NORMOCEPHALIC - Eye Exam Eye Exam: EOMI, Normal appearance - ENT Exam ENT Exam: Mucous Membranes Moist, Normal Exam - Neck Exam Neck Exam: Full ROM, Normal Inspection - Respiratory Exam Respiratory Exam: NORMAL BREATHING PATTERN - Cardiovascular Exam Cardiovascular Exam: REGULAR RHYTHM, +S1, +S2 - GI/Abdominal Exam GI & Abdominal Exam: Guarding (RUQ), Soft, Tenderness (RUQ). absent: Distended , Firm - Extremities Exam Extremities Exam: Normal Inspection - Neurological Exam Neurological Exam: Alert, Awake, CN II-XII Intact, Oriented x3 - Psychiatric Exam Psychiatric exam: Normal Affect, Normal Mood - Skin Skin Exam: Dry, Intact, Normal Color, Warm Assessment and Plan - Assessment and Plan (Free Text) Assessment: 72F w/RUQ ab discomfort likely due to Right renal cyst Plan: FOB negative Diet as tolerated IVF PRN pain control anti-emetic Avoid narcotics Monitor bowel function Cont home anxiety meds FU GI recs No surgical intervention at this time Recommend urology consult Thank you for this consult Please re-consult as need MARIBEL attending Cady, PGY-1
[2017-09-21] MEDS ORDERED: ALPRAZOLAM 0.5 MG PO SCH (10:00)
[2017-09-21 12:13] VITALS: BP 127/61; PULSE 86; RESP 20; TEMP 99
--- NOTE | 2017-09-21 12:28 | CON ---
DATE: 09/21/2017 HISTORY OF PRESENT ILLNESS: Rox Ruff is seen at the request of Dr. Ordoñez. Admitted from the emergency room with near syncope and abdominal pain. The patient was admitted from the emergency room. CAT scan is done showing a right renal cyst, otherwise unremarkable. The patient had near syncopal episode and severe right-sided abdominal pain. The pain has been there for 3 months, may be more. There are multiple and a complete workup including an upper endoscopy, lower endoscopy, ultrasound and repeat CAT scans, which have been otherwise unremarkable. She had an open appendectomy 8 years ago with a laparoscopic cholecystectomy, normal cholangiogram. Liver functions are normal. PHYSICAL EXAMINATION: HEART AND LUNGS: Unremarkable. VITAL SIGNS: Normal. CHEST: Unremarkable. ABDOMEN: Scaphoid without a liver, kidney, spleen or mass. There is no hernia. The midline is healed. There was minimal tenderness if at all. No guarding or rebound. No clubbing, cyanosis, edema. No adenopathy. LABORATORY DATA: Liver functions are normal. I have no explanation for this abdominal pain. It could possibly be adhesions. It could possible be an or possibly it could be related to the cyst, although I tend to doubt that. Ultimately, we could probably offer her a laparoscopy, but with a very very low yield of success for resolution of the symptoms. We will continue to follow the patient with you. Abundio Partida MD
--- NOTE | 2017-09-21 12:55 | DS ---
HISTORY OF PRESENT ILLNESS: I saw her resting comfortably in bed. She does not have any more dizzy. She is comfortable. She is eating a little bit. She is still having a right upper quadrant pain, very upset about that. Surgery has seen and she is not a surgical candidate. She does have a kidney cyst, possible stone. Waiting to see what Urology has to say. MEDICATIONS: She is on Ambien, Protonix, IV fluids, Toradol, Xanax, and Zofran. PHYSICAL EXAMINATION: VITAL SIGNS: 98.9 temp, 92 pulse, 146/72 blood pressure, 18 respiratory rate, 95% O2 sat on room air. HEENT: Head is atraumatic, normocephalic. HEART: Regular rate. LUNGS: Decreased breath sounds, but clear. ABDOMEN: Soft. Positive bowel sounds. Right upper quadrant tenderness. No guarding. No rebound, but there is discomfort. EXTREMITIES: Have no edema. I am not sure why she is having pain there. LABORATORY DATA: CAT scan just showed a kidney cyst. 5.7 white count, 11.7 hemoglobin, 36 hematocrit with 193 platelets. 143 sodium, potassium 3.9, BUN 16, creatinine 0.9, GFR is greater than 60, sugar is 93, calcium is 8.6, total bili is 0.5, AST is 23, ALT is 25, alk phos 111. Troponins is less than 0.01. Total protein 6.6. TSH is 2.37. Urine was for the most part clean. ASSESSMENT AND PLAN: Waiting to see what Urology has to say. This might be adhesions. She has had surgery in that area before. However, if it does not persist, she might be heading into a laparoscopic surgery for adhesions. I will discuss that with Surgery. See what Urology has to say and hopefully to discharge her later on this afternoon if there is no surgery or procedures planned. She is here for abdominal pain. Monty Ordoñez DO
--- NOTE | 2017-09-21 13:02 | CON ---
DATE: 09/21/2017 HISTORY OF PRESENT ILLNESS: This is a 72-year-old female, who felt dizzy and the patient has been complaining of right-sided abdominal pain. The patient had multiple tests. Came to the emergency room for the near syncopal episode. Called to evaluate the patient. PAST MEDICAL HISTORY: GERD; colitis; had endoscopy upper and lower; gallbladder, renal stone; anxiety; depression; insomnia; cholecystectomy. FAMILY HISTORY: Not significant. SOCIAL HISTORY: Does not smoke. Does not drink. ALLERGIES: ALLERGIC TO MORPHINE. MEDICATIONS: Xanax, Ambien and Nexium. REVIEW OF THE SYSTEMS: Ten-point review of systems was negative except abdominal pain. PHYSICAL EXAMINATION: HEENT: Normocephalic, atraumatic. NECK: Supple. NEUROLOGIC: Alert, awake, oriented x3. No aphasia. Cranial nerves II through XII were tested. Pupils reactive. EOM intact. Visual field full. No facial asymmetry. Tongue midline. Motor examination: Moves all the extremity equally. Tone normal. Deep tendon reflexes 1+. Both plantars are downgoing. Sensory appears intact. Cerebellar, gait deferred. IMPRESSION: Syncope, less likely seizure and dizziness. CAT scan of the head was done, which was negative. Workup in progress. Continue present management. We will follow. The patient is concerned about the renal cyst and Urology on the case will work up. Kemar Grover MD
--- NOTE | 2017-09-21 13:57 | CON ---
DATE: 09/21/2017 CARDIOLOGY CONSULTATION HISTORY OF PRESENT ILLNESS: The patient is a 72-year-old woman who to developed right flank pain. She has had extensive GI workup in the past. She presented to the emergency room because of mild dizziness secondary to dehydration. No loss of consciousness. No fever, no diarrhea. No abdominal pain. No chest pain. No shortness of breath. In the ER, she was found to have a left bundle-branch block which is different from her EKG from 2013. Because of this they decided to admit the patient. No previous cardiac history. No chest pain. No shortness of breath. SOCIAL HISTORY: The patient smoked. REVIEW OF SYSTEM: A 14-point review of systems is free of all cardiac symptomatology. PHYSICAL EXAMINATION: VITAL SIGNS: Blood pressure is 146/72, the heart rates in the 90s. Normal sinus rhythm. NECK: Negative JVD. LUNGS: Without rales. HEART: S1, S2. EXTREMITIES: Without edema. LABORATORY DATA: Hemoglobin is 14.7. Chemistries, troponins are negative x2. EKG shows normal sinus rhythm with left bundle branch block. IMPRESSION: 1. No evidence for acute cardiac issues. 2. Mild anemia. 3. Left bundle branch block on EKG. , the patient can be discharged. Given her family history, we will arrange for an outpatient stress test. Beny Vyas MD
--- NOTE | 2017-09-21 19:29 | CON ---
DATE: 09/21/2017 CONSULTATION CHIEF COMPLAINT: Right-sided abdominal pain. HISTORY OF PRESENT ILLNESS: This is a 72-year-old female who was seen in [facility]. The patient was admitted for feeling dizzy and generalized malaise. She has had a few months' history of right-sided abdominal pain. The patient reports she was sent for an apparent GI evaluation and was told that the pain is likely from a renal cyst. The pain is crampy and throbbing in nature. She has no history of kidney stones. The pain has no obvious improving or aggravating factors. She denies any nausea or vomiting. She denies any dysuria, urinary urgency, or gross hematuria. She does have mild urinary frequency which is worsened with increased fluid intake. She denies any fever or chills. consultation was requested regarding the above. PAST MEDICAL HISTORY: Significant for colitis, reflux, gallstones which were removed, splenomegaly, renal cyst, anxiety, depression, and insomnia. MEDICATIONS FROM HOME: Include Xanax, Ambien, and Nexium. ALLERGIES: ALLERGIC TO MORPHINE. FAMILY HISTORY: Noncontributory for this admission. SOCIAL HISTORY: No smoking. No EtOH use or other drugs. REVIEW OF SYSTEMS: A 12-point review of systems was obtained. Positive for the right-sided abdominal pain, positive for generalized malaise and not feeling well. Other systems are negative. PHYSICAL EXAMINATION: GENERAL: The patient is awake, alert, and answering questions. She is in no acute distress. VITAL SIGNS: She is afebrile. Temperature of 98.9, pulse of 92, BP 146/72, respirations 18. NECK: Supple. There is no adenopathy or mass noted. CHEST: Reveals normal inspiratory effort. CARDIAC: Shows positive S1, S2. There is no peripheral edema noted. ABDOMEN: The abdomen is soft, nontender, and nondistended. There is no hepatosplenomegaly. There is no costovertebral angle tenderness. There is no rebound or guarding. There is no obvious mass. EXTREMITIES: There is no cyanosis, clubbing, or edema noted. LABORATORY EXAM: WBC count 5.7, hemoglobin 11.7. Creatinine 0.9 with a GFR greater than 60. Urinalysis shows negative for blood, negative for nitrites, negative for leukocyte esterase. On microbiology, no available specimens. On radiologic exam, the patient had a CT scan of the abdomen and pelvis done yesterday, which showed the kidneys to be normal in size with homogeneous enhancement. There is a 2.9 cm simple cyst in the lower pole of the right kidney. There is an extrarenal pelvis on the left. No hydronephrosis. No solid mass noted. There is a small sliding hiatal hernia noted. There is confluent airspace disease in the left lung base, which may represent pneumonia. IMPRESSION AND PLAN: This is a 72-year-old female with chronic right-sided abdominal pain. Urologically, the patient has a simple renal cyst. This would not be the cause of her abdominal pain. It sounds as if the patient has had multiple other imaging modalities which also have not shown any obvious cause of the pain. Given the patient's symptoms, this is likely either a musculoskeletal pain or possibly GI in origin. The patient does not have hematuria and no cystoscopy or invasive urologic procedure is warranted at this time. I would recommend further GI evaluation, possibly evaluation of the pulmonary findings on CT scan or possibly the pain is related to the patient's anxiety as well, which should be treated. From a urologic standpoint, there were no acute findings. We can follow her cyst as an outpatient, although this is not necessary, but I would recommend a renal ultrasound in 1 year to make sure the cyst is stable. Thank you for allowing me to participate in the care of this patient. Rasheed Earl MD
== END 2017-09-21 16:10 | disposition home or self-care (01) ==
LOC: ED 13:10 → INTOOBSV 17:25 → ERH 17:25 → 2RNO 20:00
PROVIDERS: ADMIT Family Medicine; ATTEND Family Medicine
DX: R10.11 Right upper quadrant pain (principal); R55 Syncope and collapse; N28.1 Cyst of kidney, acquired; D64.9 Anemia, unspecified; E86.0 Dehydration; F41.9 Anxiety disorder, unspecified; I44.7 Left bundle-branch block, unspecified; K21.9 Gastro-esophageal reflux disease without esophagitis; K29.70 Gastritis, unspecified, without bleeding; K59.00 Constipation, unspecified; K44.9 Diaphragmatic hernia without obstruction or gangrene; Z87.442 Personal history of urinary calculi; Z88.5 Allergy status to narcotic agent
CPT/HCPCS: 36415; 71045; 74177; 80053; 81001; 82150; 83690; 84443; 84484; 85025; 85027; 93005; 96374; 96375; 99285; C9113; G0328; G0378; J1885; J2405; J7030; Q9967

== ENCOUNTER 2018-03-16 11:15 | Emergency (ER) | payer OTHER ==
[2018-03-16 11:18] VITALS: BMI 32.1
[2018-03-16 11:20] VITALS: BP 166/72; PULSE 86; RESP 18; TEMP 97.6; O2SAT 98
--- NOTE | 2018-03-16 11:30 | ED PDOC ---
Arrival/HPI - General Chief Complaint: Abnormal Skin Integrity Time Seen by Provider: 03/16/18 11:19 Historian: Patient - History of Present Illness Narrative History of Present Illness (Text): 03/16/18 11:28 72 year old female, with past medical and surgical history of appendectomy, cholecystomy, and colitis, presents to the ED for evaluation of rash under the left breast since 3 days. Patient reports worsening rash associated with itchiness, prompting her to present to the ED for medical evaluation. Patient denies any other associated somatic complaints. Patient denies any fever, chills, nausea, vomiting, diarrhea, abdominal pain, chest pain, SOB, headache, dizziness or any other complaints. Time/Duration: < week Symptom Onset: Gradual Symptom Course: Unchanged Activities at Onset: Light Context: Home Past Medical History - Provider Review Nursing Documentation Reviewed: Yes - Infectious Disease Hx of Infectious Diseases: None - Past Medical History Past Medical History: No Previous - Cardiac Hx Cardiac Disorders: No (CAD) - Pulmonary Hx Respiratory Disorders: No - Neurological Hx Neurological Disorder: No Hx Transient Ischemic Attacks (TIA): No - HEENT Hx HEENT Disorder: Yes (using reading glasses) - Renal Hx Renal Disorder: No - Endocrine/Metabolic Hx Endocrine Disorders: No - Hematological/Oncological Hx Blood Disorders: No - Integumentary Hx Dermatological Disorder: No - Musculoskeletal/Rheumatological Hx Musculoskeletal Disorders: Yes Hx Falls: No - Gastrointestinal Hx Gastrointestinal Disorders: Yes Hx Gall Bladder Disease: Yes (gall bladder stones removed) Hx Gastroesophageal Reflux: Yes Other/Comment: RECENT CT SCAN SHOWS MILD SPLENOMEGALY - Genitourinary/Gynecological Hx Genitourinary Disorders: No - Psychiatric Hx Psychophysiologic Disorder: Yes Hx Anxiety: Yes Hx Depression: Yes Hx Physical Abuse: No Hx Substance Use: No Other/Comment: INSOMNIA - Surgical History Hx Appendectomy: Yes Hx Cholecystectomy: Yes - Anesthesia Hx Anesthesia: Yes Hx Anesthesia Reactions: Yes (VOMITING) Hx Malignant Hyperthermia: No - Suicidal Assessment Feels Threatened In Home Enviroment: No Family/Social History - Physician Review Nursing Documentation Reviewed: Yes Family/Social History: Unknown Family HX Smoking Status: Never Smoked Hx Alcohol Use: No Hx Substance Use: No Hx Substance Use Treatment: No Allergies/Home Meds Allergies/Adverse Reactions: Allergies morphine Allergy (Intermediate, Verified 09/20/17 19:29) RASH ITCHY Home Medications: Home Meds Medication Instructions Recorded Confirmed RX: ALPRAZolam HALF TABLET [Xanax] 0.5 mg PO PRN PRN 03/09/16 03/16/18 RX: Zolpidem [Ambien] 10 mg PO HS 03/09/16 03/16/18 RX: Esomeprazole Magnesium [Nexium] 40 mg PO DAILY 08/09/17 03/16/18 Review of Systems - Physician Review All systems were reviewed & negative as marked: Yes - Review of Systems Constitutional: absent: Fevers Respiratory: absent: SOB, Cough Cardiovascular: absent: Chest Pain Gastrointestinal: absent: Abdominal Pain, Diarrhea, Nausea, Vomiting Genitourinary Female: absent: Dysuria, Urine Output Changes Musculoskeletal: absent: Back Pain, Neck Pain Skin: Rash (Rash noted under left breast) Neurological: absent: Headache, Dizziness Physical Exam Vital Signs Reviewed: Yes Vital Signs Temp Pulse Resp BP Pulse Ox 03/16/18 11:19 97.6 F 86 18 166/72 H 98 Temperature: Afebrile Blood Pressure: Hypertensive Pulse: Regular Respiratory Rate: Normal Appearance: Positive for: Well-Appearing, Non-Toxic, Comfortable Pain Distress: None Mental Status: Positive for: Alert and Oriented X 3 - Systems Exam Pupils: Present: PERRL Extroacular Muscles: Present: EOMI Conjunctiva: Present: Normal Respiratory/Chest: Present: Clear to Auscultation, Good Air Exchange. No: Respiratory Distress, Accessory Muscle Use Cardiovascular: Present: Regular Rate and Rhythm, Normal S1, S2. No: Murmurs Abdomen: No: Tenderness, Distention, Peritoneal Signs Breast/Axillary: Present: Other (3 cm erythematous rash noted to inframammary fold with satellite pustules. 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 No: Cyanosis, Edema Lower Extremity: Present: Normal Inspection. No: Edema Neurological: Present: GCS=15, CN II-XII Intact, Speech Normal Skin: Present: Warm, Dry, Rashes (Erythematous rash to inframammary fold.), Normal Color Psychiatric: Present: Alert, Oriented x 3, Normal Insight, Normal Concentration Medical Decision Making ED Course and Treatment: 03/16/18 11:30 Impression: 72 year old female presents to the ED complaining of rash under left breast since 3 days. Differential Diagnosis included but are not limited to: Fungal infection Plan: -- Reassess and disposition Prior Visits: Notes and results from previous visits were reviewed. Progress Notes: 03/16/18 12:30 suspect fungal infection/canddia. topical antibiotics outpt fu. - Scribe Statement The provider has reviewed the documentation as recorded by the Scribe Ada Andrews. All medical record entries made by the Scribe were at my direction and personally dictated by me. I have reviewed the chart and agree that the record accurately reflects my personal performance of the history, physical exam, medical decision making, and the department course for this patient. I have also personally directed, reviewed, and agree with the discharge instructions and disposition. Disposition/Present on Arrival - Present on Arrival Any Indicators Present on Arrival: No History of DVT/PE: No History of Uncontrolled Diabetes: No Urinary Catheter: No History of Decub. Ulcer: No History Surgical Site Infection Following: None - Disposition Have Diagnosis and Disposition been Completed?: Yes Diagnosis: Rash, Fungal rash of trunk Disposition: HOME/ ROUTINE Disposition Time: 11:50 Condition: STABLE Discharge Instructions (ExitCare): Skin Rash (DC), Fungal Skin Rash (DC) Additional Instructions: follow up with [facility]ails[facility]. you will need further testing as an outpatient. return to any er with any concern Prescriptions: RX: Nystatin [Mycostatin Oint] 1 applic TOP BID #1 tube Referrals: Momo Coy MD [Staff Provider] - Follow up with primary Forms: [employer] (Malay)
== END 2018-03-16 11:53 | disposition home or self-care (01) ==
LOC: ED 11:15
DX: B36.9 Superficial mycosis, unspecified (principal)

== ENCOUNTER 2018-04-11 13:05 | Emergency (ER) | payer OTHER ==
[2018-04-11 13:06] VITALS: BMI 32.1
[2018-04-11 13:46] VITALS: RESP 18; TEMP 98.4
--- NOTE | 2018-04-11 14:13 | ED PDOC ---
Arrival/HPI - General Chief Complaint: GI Problem Time Seen by Provider: 04/11/18 13:43 Historian: Patient - History of Present Illness Narrative History of Present Illness (Text): 04/11/18 14:09 A 72 year old female, whose past medical history includes appendectomy, cholecystomy, and colitis, presents to the emergency department complaining of abdominal pain, constipation, and decreased appetite. Patient reports she was recently seen at [facility] and had CT of Abd/Pelvis performed, to which the patient does not have the results n her person. Patient mentions her last bowel movement was 3 days ago. States she is dehydrated at this time. Patient denies any other complaints at this time. Also, patient has currently been taking Lactulose. States she has an appointment to see PMD tomorrow however could not wait to be seen. PMD: Dr. Ordoñez Past Medical History - Provider Review Nursing Documentation Reviewed: Yes - Infectious Disease Hx of Infectious Diseases: None - Past Medical History Past Medical History: No Previous - Cardiac Hx Cardiac Disorders: No (CAD) - Pulmonary Hx Respiratory Disorders: No - Neurological Hx Neurological Disorder: No Hx Transient Ischemic Attacks (TIA): No - HEENT Hx HEENT Disorder: Yes (using reading glasses) - Renal Hx Renal Disorder: No - Endocrine/Metabolic Hx Endocrine Disorders: No - Hematological/Oncological Hx Blood Disorders: No - Integumentary Hx Dermatological Disorder: No - Musculoskeletal/Rheumatological Hx Musculoskeletal Disorders: Yes Hx Falls: No - Gastrointestinal Hx Gastrointestinal Disorders: Yes Hx Gall Bladder Disease: Yes (gall bladder stones removed) Hx Gastroesophageal Reflux: Yes Other/Comment: RECENT CT SCAN SHOWS MILD SPLENOMEGALY - Genitourinary/Gynecological Hx Genitourinary Disorders: No - Psychiatric Hx Psychophysiologic Disorder: Yes Hx Anxiety: Yes Hx Depression: Yes Hx Physical Abuse: No Hx Substance Use: No Other/Comment: INSOMNIA - Surgical History Hx Appendectomy: Yes Hx Cholecystectomy: Yes - Anesthesia Hx Anesthesia: Yes Hx Anesthesia Reactions: Yes (VOMITING) Hx Malignant Hyperthermia: No - Suicidal Assessment Feels Threatened In Home Enviroment: No Family/Social History - Physician Review Nursing Documentation Reviewed: Yes Family/Social History: No Known Family HX Smoking Status: Never Smoked Hx Alcohol Use: No Hx Substance Use: No Hx Substance Use Treatment: No Allergies/Home Meds Allergies/Adverse Reactions: Allergies morphine Allergy (Intermediate, Verified 09/20/17 19:29) RASH ITCHY Home Medications: Home Meds Medication Instructions Recorded Confirmed ALPRAZolam HALF TABLET [Xanax] 0.5 mg PO PRN PRN 03/09/16 04/11/18 Zolpidem [Ambien] 10 mg PO HS 03/09/16 04/11/18 Esomeprazole Magnesium [Nexium] 40 mg PO DAILY 08/09/17 04/11/18 Ciprofloxacin [Cipro] 1 tab PO BID 04/11/18 04/11/18 Docusate [Colace] 1 cap PO BID 04/11/18 04/11/18 Sennosides [Bertha-Sandro] 1 tab PO BID 04/11/18 04/11/18 metroNIDAZOLE [Flagyl] 1 tab PO BID 04/11/18 04/11/18 Review of Systems - Physician Review All systems were reviewed & negative as marked: Yes - Review of Systems Constitutional: absent: Fevers Gastrointestinal: Abdominal Pain, Constipation (last bowel movement 3 days ago), Appetite Changes (decreased appetite) Physical Exam - Physical Exam Narrative Physical Exam (Text): Gen: VS reviewed, alert, well developed, well nourished, nontoxic, mild distress. ENT: normal pharynx. Eye: EOMI, PERRL. Neck: no JVD, supple, no adenopathy. CV: regular rate, regular rhythm, no rubs, no murmur, no gallops, S1, S2, pulses equal and strong. Pulm: no distress, clear to auscultation, no wheeze, no rhonchi, breath sounds e qual, no rales. Abd: soft, diffuse tenderness, some guarding, no rebound, no rigidity, normal bowel sounds. Ext: no edema. Skin: good color, no rash, no cyanosis. Psych: responds appropriately to questions, normal affect. Neuro: oriented x 3, CN2-12 intact grossly, motor intact, sensation intact. Vital Signs Reviewed: Yes Vital Signs Temp Pulse Resp BP Pulse Ox 04/11/18 13:46 98.4 F 80 18 157/99 H 98 Temperature: Afebrile Blood Pressure: Hypertensive Pulse: Regular Respiratory Rate: Normal Appearance: Positive for: Well-Appearing, Non-Toxic, Comfortable Pain Distress: None Mental Status: Positive for: Alert and Oriented X 3 Medical Decision Making ED Course and Treatment: 04/11/18 14:10 Impression: 72 year old female with abdominal pain, constipation, and decreased appetite. Plan: -- Labs -- Urinalysis -- Toradol -- IV Fluids -- Reassess and disposition Prior Visits: Notes and results from previous visits were reviewed. Patient was last seen here in the emergency department on 03/16/2018 for rash. Patient was discharged home. Progress Notes: 04/11/18 14:10 Results of patient from [facility] ER reviewed with physician there. Patient was seen 04/05/[address] Abd/Pelvis performed, was diagnosed pancolitis, and prescribed Cipro and Flagyl. Patient returned 04/07/2018, had a repeat CT Abd/Pelvis, which showed colitis resolved, however there was no radiographic comment regarding constipation. Patient at the time reported having constipation and was therefore treated as such. 04/11/18 17:24 rectal exam aprn TOMMY Greene: there was no stool in rectla vault: hemoccult negative [id number] patient seen abdominal pain, diffuse, suspected constipation. patient had two recent Ct a/p scans. patient was initially treated for colitis. patient was offered admit to the hospital but refuses and would rather see her pcp tomorrow and her GI next week. patient discharged in stable condition. - Scribe Statement The provider has reviewed the documentation as recorded by the Anabel Etienne Provider Scribe Attestation: All medical record entries made by the Omeribrohith were at my direction and personally dictated by me. I have reviewed the chart and agree that the record accurately reflects my personal performance of the history, physical exam, medical decision making, and the department course for this patient. I have also personally directed, reviewed, and agree with the discharge instructions and disposition. Disposition/Present on Arrival - Present on Arrival Any Indicators Present on Arrival: No History of DVT/PE: No History of Uncontrolled Diabetes: No Urinary Catheter: No History of Decub. Ulcer: No History Surgical Site Infection Following: None - Disposition Have Diagnosis and Disposition been Completed?: Yes Diagnosis: Abdominal pain Disposition: HOME/ ROUTINE Disposition Time: 17:30 Patient Plan: Discharge Condition: STABLE Discharge Instructions (ExitCare): Acute Abdomen (Belly Pain), Adult (DC) Additional Instructions: return for any new or worsening symptoms. follow up with your doctors as discussed. Prescriptions: oxyCODONE/Acetaminophen [Percocet 5/325 mg Tab] 1 ea PO QID #20 tab Sennosides/Docusate Sodium [Colace 2-in-1 Tablet] 2 each PO BID 7 Days #14 tablet Referrals: Monty Ordoñez DO [Primary Care Provider] - Follow up with primary Forms: [employer] (Uzbek)
[2018-04-11] MEDS ORDERED: Sodium Chloride 0.9% 1,000 ML IV SCH (14:30)
[2018-04-11 14:52] LABS: URINE BILIRUBIN NEGATIVE (NEGATIVE); URINE BLOOD NEGATIVE (NEGATIVE); URINE GLUCOSE (UA) NEGATIVE (NEGATIVE); URINE LEUKOCYTE ESTERASE NEGATIVE Leu/uL (NEGATIVE); URINE PROTEIN TRACE mg/dL (<30 mg/dL); URINE UROBILINOGEN 0.2 E.U./dL (<1 E.U./dL)
[2018-04-11 14:56] LABS: URINE APPEARANCE CLEAR (CLEAR); URINE COLOR YELLOW (YELLOW)
[2018-04-11 14:59] LABS: URINE RBC 0 - 2 /hpf (0-2)
[2018-04-11 15:00] LABS: URINE AMORPHOUS SEDIMENT FEW /hpf; URINE BACTERIA MOD /hpf
[2018-04-11 15:36] LABS: BASO # 0.02 K/mm3 (0.0-2.0); BASO % 0.4 % (0.0-3.0); EOS % 0.4 % (1.5-5.0); GRAN # 3.29 (1.4-6.5); GRAN % 61.8 % (50.0-68.0); HEMOGLOBIN 12.9 g/dL (12.0-16.0); LYMPH # 1.7 (1.2-3.4); LYMPH % 31.2 % (22.0-35.0); MEAN CELL VOLUME 87.5 fl (80.0-105.0); MEAN CORPUSCULAR HEMOGLOBIN 28.3 pg (25.0-35.0); MEAN CORPUSCULAR HGB CONC 32.3 g/dl (31.0-37.0); MEAN PLATELET VOLUME 10.9 fl (7.0-11.0); MONO # 0.3 (0.1-0.6); MONO % 6.2 % (1.0-6.0); RBC 4.56 10^6/uL (3.5-6.1); RED CELL DISTRIBUTION WIDTH 14.3 % (11.5-14.5); WHITE BLOOD COUNT 5.3 10^3/uL (4.5-11.0)
[2018-04-11 15:42] LABS: ALB/GLOB RATIO 1.6 (1.1-1.8); ALBUMIN 4.7 g/dL (3.0-4.8); ALT/SGPT 43 U/L (7-56); AST/SGOT 35 U/L (14-36); BLOOD UREA NITROGEN 16 mg/dL (7-21); CALCIUM 9.5 mg/dL (8.4-10.5); GFR NON-AFRICAN AMERICAN 54; LIPASE 86 U/L (23-300)
--- NOTE | 2018-04-11 17:10 | RAD ---
Date of service: 04/11/2018 HISTORY: Abdominal pain, constipation COMPARISON: None available. FINDINGS: BOWEL: There gas in the stomach and colon. The bowel gas pattern is nonspecific and nonobstructive. BONES: Within normal limits for the patient's age. OTHER FINDINGS: Surgical clips in the right upper quadrant are related to prior cholecystectomy. IMPRESSION: Nonspecific nonobstructive bowel gas pattern.
[2018-04-11 17:50] VITALS: BP 141/68; PULSE 75; O2SAT 98
== END 2018-04-11 17:57 | disposition home or self-care (01) ==
LOC: ED 13:05
DX: R10.9 Unspecified abdominal pain (principal)
CPT/HCPCS: 74018; 80053; 81001; 83690; 85025; 96374; 99284; J1885; J7030